=== PATIENT | male | born 1965 | race Caucasian/White ===

== ENCOUNTER 2017-02-13 20:53 | Inpatient (IN) | payer SELFPAY ==
[2017-02-13] MEDS ORDERED: NS 0.9% 1000 ML* 1,000 ML IV ONE (20:59)
[2017-02-13 21:16] LABS: Hematocrit 46 % (42-52); Hemoglobin 15.2 g/dl (14.0-18.0); Mean Corpuscular HGB Conc 33 g/dl (31-36); Mean Corpuscular Hemoglobin 31 pg (27-31); Mean Corpuscular Volume 93 fL (80-94); Mean Platelet Volume 7 um3 (7.4-10.4); Red Blood Count 4.95 10^6/ul (4.0-5.4); Red Cell Distribution Width 14 % (10.5-15); White Blood Count 10.6 10^3/ul (3.5-10.8)
[2017-02-13] MEDS ORDERED: LORazepam INJ* 2 MG/ML 1 ML VIAL IV PUSH ONE (21:18)
[2017-02-13] MEDS ORDERED: LORazepam INJ* 2 MG/ML 1 ML VIAL ONE (21:19)
[2017-02-13 21:28] LABS: ALT 16 U/L (7-52); AST 25 U/L (13-39); Albumin 4.1 g/dL (3.2-5.2); Alkaline Phosphatase 72 U/L (34-104); Anion Gap 8 mmol/L (2-11); BUN/Creatinine Ratio 8.2 (8-20); Blood Urea Nitrogen 8 mg/dL (6-24); CO2 Carbon Dioxide 28 mmol/L (22-32); Calcium 9.2 mg/dL (8.6-10.3); Chloride 103 mmol/L (101-111); EGFR African American 104.9 (>60); EGFR Non-African American 81.6 (>60); Globulin 2.9 g/dL (2-4); Glucose 113 mg/dL (70-100); Potassium 3.2 mmol/L (3.5-5.0); Sodium 139 mmol/L (133-145)
[2017-02-13 21:36] LABS: Urine Bilirubin Negative (Negative); Urine Glucose Negative (Negative); Urine Nitrite Negative (Negative)
[2017-02-13] MEDS ORDERED: Succinylcholine* 20 MG/ML 10 ML VIAL ONE (21:45)
[2017-02-13 21:49] LABS: Acetaminophen < 15 mcg/mL; Alcohol 129 mg/dL (<10); Salicylate < 2.50 mg/dL (<30)
[2017-02-13 21:51] LABS: Benzodiazepine Urine Screen None Detected (None Detect)
[2017-02-13] MEDS ORDERED: Propofol* 100 ML ONE (21:51)
[2017-02-13] MEDS ORDERED: Dextrose 50% Syringe 50 ML* 25 GM/50 ML SYRINGE IV PUSH PRN (21:59)
[2017-02-13] MEDS ORDERED: Acetaminophen ADULT LIQ* 650 MG/20.3 ML UDC PO PRN (21:59)
--- NOTE | 2017-02-13 22:10 | ED ---
Estrada Holliday Billy, scribed for Nate Hummel MD on 02/13/17 at 2115 . Substance Abuse/Use - HPI Summary HPI Summary: Patient is a 51 year-old male coming to [facility] for evaluation of Benadryl overdose tonight. History obtained from EMS. They report that the patient was having an argument with his girlfriend when he stated that he was going to kill himself. The patient took approximately 100-200 tabs of Benadryl 25mg. He also had 4-5 beers tonight. - History Of Current Complaint Chief Complaint: EDOverdose Stated Complaint: OVERDOSE Time Seen by Provider: 02/13/17 20:55 Hx Obtained From: EMS Onset/Duration of Drug/ETOH Abuse: Minutes Ingestion History: Type/Name Of Drug - Benadryl, EtOH Overdose Characteristics: Oral Timing Of Abuse: Binge Use Severity Initially: Moderate Severity Currently: Moderate Character: Stuporous Aggravating Factor(s): Nothing Alleviating Factor(s): Nothing - Allergies/Home Medications Allergies/Adverse Reactions: Allergies Allergy/AdvReac Type Severity Reaction Status Date / Time NSAIDs Allergy cardiac hx Verified 02/26/14 20:53 PMH/Surg Hx/FS Hx/Imm Hx Endocrine/Hematology History: Reports: Hx Diabetes Cardiovascular History: Reports: Hx Myocardial Infarction Respiratory History: Reports: Hx Sleep Apnea - PER PT HAS NOT BEEN DX Musculoskeletal History: Reports: Hx Arthritis - ANKLE Psychiatric History: Reports: Hx Substance Abuse - Immunization History Date of Tetanus Vaccine: PT STATES UNSURE Date of Influenza Vaccine: NONE Infectious Disease History: No Infectious Disease History: Denies: Traveled Outside the [place] in Last 30 Days - Family History Family History: Not obtained from the patient as he is stuporous and not coherently answering any questions. - Social History Alcohol Use: Rare Substance Use Type: Reports: None Hx Tobacco Use: Yes Review of Systems Negative: Fever Neurological: Other - OD All Other Systems Reviewed And Are Negative: No - Comments Additional Review of Systems Comments: Full ROS not obtained from the patient as he is stuporous and not coherently answering any questions. Physical Exam Triage Information Reviewed: Yes Vital Signs On Initial Exam: Initial Vitals Temp Pulse Resp BP Pulse Ox 98 F 82 24 154/87 95 02/13/17 20:58 02/13/17 20:58 02/13/17 20:58 02/13/17 20:58 02/13/17 20:58 Vital Signs Reviewed: Yes Completion Of Physical Exam Limited Due To: Extremis Appearance: Positive: Ill-Appearing Skin: Positive: Warm, Dry Head/Face: Positive: Normal Head/Face Inspection Eyes: Positive: NIESHA ENT: Positive: Hearing grossly normal Neck: Positive: Supple Respiratory/Lung Sounds: Positive: Clear to Auscultation, Breath Sounds Present Cardiovascular: Positive: RRR Abdomen Description: Positive: Nontender, Soft Musculoskeletal: Positive: Strength/ROM Intact Neurological: Positive: Other - moves all extremities, lethargic but arousable Psychiatric: Positive: Depressed - [place] Coma Scale Best Eye Response: 3 - To Speech Best Motor Response: 5 - Purposeful Movement Best Verbal Response: 3 - Inappropriate Words Procedures - Intubation Intubation Method: orotracheal Tube Size (cm): 8.0 Medications: Succinylcholine - etomidate Breath Sounds after Intubation: equal Intubation Complications: no complications Post Intubation Xray: Yes Diagnostics - Vital Signs Vital Signs Temp Pulse Resp BP Pulse Ox 02/13/17 20:58 98 F 82 24 154/87 95 - Laboratory Lab Results: Lab Results 02/13/17 02/13/17 02/13/17 Range/Units 21:00 21:00 21:00 WBC 10.6 (3.5-10.8) 10^3/ul RBC 4.95 (4.0-5.4) 10^6/ul Hgb 15.2 (14.0-18.0) g/dl Hct 46 (42-52) % MCV 93 (80-94) fL MCH 31 (27-31) pg MCHC 33 (31-36) g/dl RDW 14 (10.5-15) % Plt Count 286 (150-450) 10^3/ul MPV 7 L (7.4-10.4) um3 Neut % (Auto) 56.7 (38-83) % Lymph % (Auto) 33.6 (25-47) % Woodward % (Auto) 7.0 (1-9) % Eos % (Auto) 1.7 (0-6) % Baso % (Auto) 1.0 (0-2) % Absolute Neuts (auto) 6.0 (1.5-7.7) 10^3/ul Absolute Lymphs (auto) 3.6 (1.0-4.8) 10^3/ul Absolute Monos (auto) 0.7 (0-0.8) 10^3/ul Absolute Eos (auto) 0.2 (0-0.6) 10^3/ul Absolute Basos (auto) 0.1 (0-0.2) 10^3/ul Absolute Nucleated RBC 0.01 10^3/ul Nucleated RBC % 0 Sodium 139 (133-145) mmol/L Potassium 3.2 L (3.5-5.0) mmol/L Chloride 103 (101-111) mmol/L Carbon Dioxide 28 (22-32) mmol/L Anion Gap 8 (2-11) mmol/L BUN 8 (6-24) mg/dL Creatinine 0.97 (0.67-1.17) mg/dL Est GFR ( Amer) 104.9 (>60) Est GFR (Non-Af Amer) 81.6 (>60) BUN/Creatinine Ratio 8.2 (8-20) Glucose 113 H (70-100) mg/dL POC Glucose (mg/dL) (74-106) mg/dL Lactic Acid 2.0 (0.5-2.0) mmol/L Calcium 9.2 (8.6-10.3) mg/dL Total Bilirubin 0.30 (0.2-1.0) mg/dL AST 25 (13-39) U/L ALT 16 (7-52) U/L Alkaline Phosphatase 72 (34-104) U/L Total Protein 7.0 (6.4-8.9) g/dL Albumin 4.1 (3.2-5.2) g/dL Globulin 2.9 (2-4) g/dL Albumin/Globulin Ratio 1.4 (1-3) Urine Color Urine Appearance Urine pH (5-9) Ur Specific [place] (1.010-1.030) Urine Protein (Negative) Urine Ketones (Negative) Urine Blood (Negative) Urine Nitrate (Negative) Urine Bilirubin (Negative) Urine Urobilinogen (Negative) Ur Leukocyte Esterase (Negative) Urine Glucose (Negative) Salicylates < 2.50 (<30) mg/dL Urine Opiates Screen (None Detect) Acetaminophen < 15 mcg/mL Ur Barbiturates Screen (None Detect) Ur Phencyclidine Scrn (None Detect) Ur Amphetamines Screen (None Detect) U Benzodiazepines Scrn (None Detect) Urine Cocaine Screen (None Detect) U Cannabinoids Screen (None Detect) Serum Alcohol 129 H (<10) mg/dL 02/13/17 02/13/17 02/13/17 Range/Units 21:21 21:21 21:21 WBC (3.5-10.8) 10^3/ul RBC (4.0-5.4) 10^6/ul Hgb (14.0-18.0) g/dl Hct (42-52) % MCV (80-94) fL MCH (27-31) pg MCHC (31-36) g/dl RDW (10.5-15) % Plt Count (150-450) 10^3/ul MPV (7.4-10.4) um3 Neut % (Auto) (38-83) % Lymph % (Auto) (25-47) % Woodward % (Auto) (1-9) % Eos % (Auto) (0-6) % Baso % (Auto) (0-2) % Absolute Neuts (auto) (1.5-7.7) 10^3/ul Absolute Lymphs (auto) (1.0-4.8) 10^3/ul Absolute Monos (auto) (0-0.8) 10^3/ul Absolute Eos (auto) (0-0.6) 10^3/ul Absolute Basos (auto) (0-0.2) 10^3/ul Absolute Nucleated RBC 10^3/ul Nucleated RBC % Sodium (133-145) mmol/L Potassium (3.5-5.0) mmol/L Chloride (101-111) mmol/L Carbon Dioxide (22-32) mmol/L Anion Gap (2-11) mmol/L BUN (6-24) mg/dL Creatinine (0.67-1.17) mg/dL Est GFR ( Amer) (>60) Est GFR (Non-Af Amer) (>60) BUN/Creatinine Ratio (8-20) Glucose (70-100) mg/dL POC Glucose (mg/dL) 153 H (74-106) mg/dL Lactic Acid (0.5-2.0) mmol/L Calcium (8.6-10.3) mg/dL Total Bilirubin (0.2-1.0) mg/dL AST (13-39) U/L ALT (7-52) U/L Alkaline Phosphatase (34-104) U/L Total Protein (6.4-8.9) g/dL Albumin (3.2-5.2) g/dL Globulin (2-4) g/dL Albumin/Globulin Ratio (1-3) Urine Color Straw Urine Appearance Clear Urine pH 7.0 (5-9) Ur Specific [place] 1.004 L (1.010-1.030) Urine Protein Negative (Negative) Urine Ketones Negative (Negative) Urine Blood Negative (Negative) Urine Nitrate Negative (Negative) Urine Bilirubin Negative (Negative) Urine Urobilinogen Negative (Negative) Ur Leukocyte Esterase Negative (Negative) Urine Glucose Negative (Negative) Salicylates (<30) mg/dL Urine Opiates Screen None detected (None Detect) Acetaminophen mcg/mL Ur Barbiturates Screen None detected (None Detect) Ur Phencyclidine Scrn None detected (None Detect) Ur Amphetamines Screen None detected (None Detect) U Benzodiazepines Scrn None detected (None Detect) Urine Cocaine Screen Presumptive positive H (None Detect) U Cannabinoids Screen None detected (None Detect) Serum Alcohol (<10) mg/dL Result Diagrams: 02/13/17 21:00 02/13/17 21:00 Lab Statement: Any lab studies that have been ordered have been reviewed, and results considered in the medical decision making process. - Radiology CXR Radiology Interpretation Completed By: Radiologist - Adequately positioned endotracheal tube. - EKG 2121 EKG Interpretation: NSR 80 bpm Course/Dx - Diagnoses Provider Diagnoses: OD (overdose of drug) - Physician Notifications Instructed by Provider To: Admit As Inpatient - Critical Care Time Critical Care Time: 30-74 min Discharge - Discharge Plan Condition: Critical Disposition: ADMITTED TO [facility] documentation as recorded by the Estrada guzman Billy accurately reflects the service I personally performed and the decisions made by me, Nate Hummel MD.
[2017-02-13] MEDS ORDERED: fentaNYL* 50 MCG/ML 2 ML VIAL (100 MCG VIAL) IV SLOW PU ONE (22:16)
[2017-02-13] MEDS ORDERED: fentaNYL* 50 MCG/ML 2 ML VIAL (100 MCG VIAL) ONE (22:16)
[2017-02-13] MEDS: Propofol* 100 ML IV SCH (22:21)
[2017-02-13] MEDS ORDERED: LORazepam INJ* 2 MG/ML 1 ML VIAL IV PUSH PRN (22:26)
--- NOTE | 2017-02-13 22:28 | RAD ---
INDICATION: Intubation COMPARISON: Previous chest x-ray dated February 26, 2014 TECHNIQUE: Single AP portable view of the chest was obtained. FINDINGS: Image quality is compromised due to the relative inferiority of a portable chest x-ray. The endotracheal tube tip terminates below the level of the clavicular heads approximately 2.2 cm above the cristino. The heart and mediastinum exhibit normal size and contour. The lungs are grossly clear. There is no evidence of a large pleural effusion. Visualized bones are normal for the patient's age. IMPRESSION: Adequately positioned endotracheal tube.
[2017-02-13] MEDS ORDERED: fentaNYL PCA* 20 ML PCA SCH (23:00)
[2017-02-13] MEDS: NS 0.9% 1000 ML* 1,000 ML IV SCH (23:04)
[2017-02-13] MEDS ORDERED: Pantoprazole IV* 40 MG IV ONE (23:30)
[2017-02-13] MEDS: KCL 20 MEQ/100 ML IVPREMIX* 20 MEQ/100 ML BAG IV SCH (23:43)
[2017-02-13] MEDS: Pantoprazole IV* 80 MG in NS 0.9% 250 ML* 250 ML IVPB SCH (23:44)
--- NOTE | 2017-02-14 01:08 | HP ---
HISTORY AND PHYSICAL: DATE OF ADMISSION: 02/13/17 PRIMARY CARE PROVIDER: Unknown. ATTENDING PHYSICIAN WHILE IN THE HOSPITAL: Dr. Chalino Araya *(report dictated by Ethan Rider NP). CHIEF COMPLAINT: Overdose. HISTORY OF PRESENT ILLNESS: Mr. Skinner is a 51-year-old male patient that presented to the emergency department today apparently for an attempt of suicide by taking Benadryl and drinking 6 to 7 beers. Most of the H and P is unable to be obtained from the patient as he is nonresponsive. Essentially, the H and P is obtained from the nursing staff. According to the nursing staff , they got report from EMS. The patient today had told his girlfriend about half an hour to an hour prior to arrival to the ER that he had taken a handful, 2 bottles worth of 25 mg Benadryl 100 to 200 tablets. He also had had 6 or 7 beers. Apparently, they had gotten into an argument. He felt suicidal and wanted to take his life. He presents to the ER. He again was noted to be very lethargic, drowsy, unable to protect his airway, ultimately was intubated and the hospitalist service was asked to evaluate and consult. Poison Control was consulted. PAST MEDICAL HISTORY: From old chart include hypertension, hyperlipidemia, CAD , and a history of ID. PAST SURGICAL HISTORY: He has had a cardiac catheterization and one stent. MEDICATIONS: Last med list that I have in the computer: 1. Aspirin 81 mg daily. 2. Atenolol 25 mg daily. 3. Atorvastatin 20 mg daily. 4. Nitro 0.4 mg q.5 minutes p.r.n. chest pain x3. ALLERGIES TO MEDICATIONS: According to the available chart include NSAIDS. FAMILY HISTORY: Unable to be obtained. SOCIAL HISTORY: Unable to be obtained. REVIEW OF SYSTEMS: Unable to be obtained. PHYSICAL EXAMINATION GENERAL: At this time, Mr. Skinner is a 51-year-old male patient. He is sitting in the ER stretcher. He does not appear to be in any distress. He is again lethargic and is obtunded. VITAL SIGNS: Blood pressure 154/87, pulse 83, respirations 24, O2 sat 95%, temperature 98. HEENT: Head: Atraumatic. Eyes: Sclerae anicteric. Throat: Oral mucosa appears to be moist. No oropharyngeal erythema. NECK: Supple. LUNGS: Clear to auscultation bilaterally. No wheezes, rales, or rhonchi. HEART: Sounds S1, S2. Regular rate and rhythm.. ABDOMEN: Soft, flat, nontender. Bowel sounds present. EXTREMITIES: Pulses were 2+ throughout. He is moving all 4 extremities. NEUROLOGICAL: He will respond to sternal rub only. He will not open his eyes. He does not have an intact gag reflex at this point. His pupils were equal and reactive. They were not dilated. When he becomes restless, he grossly moves all 4 extremities. Corneal reflexes were intact and no facial droop. SKIN: Intact. DIAGNOSTIC STUDIES/LAB DATA: Labs today revealed WBC 10.6, RBC of 4.95, hemoglobin 15.2, hematocrit of 46, platelet count 286. Sodium 139, potassium 3.8, chloride of 103, bicarb 28, BUN 8, creatinine 0.97, glucose 113, lactic 2.0. AST 25, ALT 16, total bili is 0.3, albumin of 4.1. Urine obtained, negative. Toxicology, positive for alcohol and cocaine. He had EKG done in the ED, which revealed normal sinus rhythm, rate of 80, no ST elevations or T-wave inversions. His QTc was 420. This was reviewed to the previous EKG, it is similar. The QTC is similar to then as well. He had a chest x-ray. Official read is pending. This is status post intubation. It reveals an ET tube is just above the cristino. He had no blunting of the costophrenic angles. No infiltrates or effusions were noted. Old medical records reviewed. ASSESSMENT AND PLAN: Mr. Skinner is a 51-year-old male patient coming in to the ER today with suicidal ideation. In the ED, he appeared to be obtunded, cannot protect his airways, so he was intubated by Dr. Araya. We were asked to evaluate for admission. He will be admitted under inpatient status for: 1. Suicidal ideation with overdose. At this point, we did touch base with Poison Control. He was hypoglycemic in the field. His sugar was 42, it is 113 now. So, they recommended checking his blood sugars every hour in case he took something else that we are unaware of. In addition to this, they also recommended p.r.n. benzos, IV fluids, Duldey catheter, and airway protections. So, we intubated and he was placed on propofol drip. We will put him on assist control settings. I did touch base with Dr. Griggs. He was in agreement with this and will continue to follow, placed an OG tube up in the ICU and when he is extubated, he will need to be on a one to one safety watch and we will get a Psych consult when he is medically stable. At this point, to be safe, I am just getting a CT of the brain. 2. Coronary artery disease. Again, at this point, I do not have an accurate med list. So, we will try to obtain this in the morning and get him back on his medications that he was taking. 3. Hypertension. At this point, his blood pressure is in the 150s. If it becomes over the 180s, we can certainly give him p.r.n. medications for this. 4. Hyperlipidemia. Again, I will get an accurate list and start him on his meds. 5. DVT prophylaxis. I will put him on heparin subcu. 6. Code status. Full code. 7. Fluids, electrolytes, nutrition. Normal saline at 150 an hour and we will replace the potassium. TIME SPENT: Time spent on the admission 70 minutes, greater than half the time was spent [id number] with the patient in critical care time and discussed the plan of care with my attending, Dr. Araya; [place] [id number]/[facility] #: [id number] [place]
[2017-02-14] MEDS: Propofol* 100 ML IV SCH ×3 (01:09→07:51)
[2017-02-14] MEDS: KCL 20 MEQ/100 ML IVPREMIX* 20 MEQ/100 ML BAG IV SCH ×2 (02:08→03:47)
[2017-02-14 06:24] LABS: Hematocrit 40 % (42-52); Hemoglobin 13.5 g/dl (14.0-18.0); Mean Corpuscular HGB Conc 34 g/dl (31-36); Mean Corpuscular Hemoglobin 32 pg (27-31); Mean Corpuscular Volume 94 fL (80-94); Mean Platelet Volume 7 um3 (7.4-10.4); Red Blood Count 4.23 10^6/ul (4.0-5.4); Red Cell Distribution Width 14 % (10.5-15); White Blood Count 10.7 10^3/ul (3.5-10.8)
[2017-02-14 06:34] LABS: Calcium 8.2 mg/dL (8.6-10.3); EGFR African American 115.9 (>60); EGFR Non-African American 90.1 (>60)
[2017-02-14 06:40] LABS: Potassium 4.7 mmol/L (3.5-5.0)
[2017-02-14] MEDS: NS 0.9% 1000 ML* 1,000 ML IV SCH ×2 (06:43→12:28)
--- NOTE | 2017-02-14 07:40 | RAD ---
INDICATION: Altered mental status COMPARISON: None. TECHNIQUE: Contiguous axial sections of the brain were obtained from the skull base to the vertex without contrast. FINDINGS: The ventricles, cisterns and sulci are within normal limits. The bender-white matter differentiation is adequately maintained and there is no sulcal effacement. No significant focal abnormality or mass effect is present. There is no evidence for intracranial hemorrhage. No significant focal osseous abnormality is present. There is moderate mucosal thickening of the bilateral ethmoid air cells. Remaining visualized paranasal sinuses are clear. The mastoid air cells are adequately aerated. IMPRESSION: Normal CT of the brain.
--- NOTE | 2017-02-14 07:41 | RAD ---
INDICATION: Orogastric tube placement check COMPARISON: Chest x-ray dated February 13, 2017 TECHNIQUE: Single AP view of the chest was obtained. FINDINGS: There is a gastric tube with the tip terminating overlying the gastric fundus. The endotracheal tube is below the level of the clavicular heads and 5 cm above the cristino. The heart and mediastinum exhibit normal size and contour. The lungs are grossly clear. There is no evidence of a large pleural effusion. Visualized bones are normal for the patient's age. IMPRESSION: APPROPRIATELY POSITIONED GASTRIC TUBE AND ENDOTRACHEAL TUBE DESCRIBED ABOVE.
[2017-02-14] MEDS: Heparin VIAL(*) 5000 UNITS/ML VIAL (FIVE THOUSAND) SUBCUT SCH ×3 (07:51→21:43)
[2017-02-14] MEDS ORDERED: Famotidine SUSP* 40 MG/5 ML ORAL.SUSP G TUBE SCH (09:00)
[2017-02-14] MEDS: Pantoprazole IV* 80 MG in NS 0.9% 250 ML* 250 ML IVPB SCH (11:11)
--- NOTE | 2017-02-14 11:43 | PN ---
Progress Note - Progress Note Note: CRITICAL CARE MEDICINE Date: 02/14/17 Time: 1050 SUBJECTIVE: Patient seen and examined. Awakens off prop to follow commands. PHYSICAL EXAM: Vital Signs: Reviewed. Neurologic: nonfocal. DESIR. HEENT: pupils equal. Sclera anicteric. Trachea midline. Cardiovascular: S1 S2 Respiratory: coarse Abdomen: Soft, nt. No r/g/r. Extremities: Warm. LABS: Reviewed. IMAGING: Reviewed. MEDICATIONS: Reviewed. ASSESSMENT: 51 M Intentional OD benadryl and etoh consumption Acute hypoxic resp failure needing airway protection CAD PLAN: Neurologic: hold prop. Cardiovascular: perfusing. vol ok. keep ivf this am and then off later today. Respiratory: can liberate from vent. doing well with neuro status and great on cpap. Gastrointestinal: po diet post. can stop ppi gtt. no signs of gi bleed. Renal/Metabolic: lytes ok. Infectious Disease: no infective signs. Hematology: stable Endocrine: glu stable. dc accu checks. Musculoskeletal: oob later Psych/Social: will need pysch eval. suicidal precautions for now. Supportive and preventative care as ordered. SUP: ppi received VTE prophylaxis: heparin Dudley catheter given critical illness, monitoring needs for accurate assessment of LARA and KDIGO criteria for critically ill patients and to avoid potential harms of urinary retention, skin breakdown/ulcers. Restraints: dc Disposition: ICU; potential to floor later today. Code Status: Full Critical Care Time: 35min Pankaj Griggs DO
[2017-02-15] MEDS: Heparin VIAL(*) 5000 UNITS/ML VIAL (FIVE THOUSAND) SUBCUT SCH ×2 (05:35→14:07)
[2017-02-15 07:24] LABS: Hematocrit 41 % (42-52); Hemoglobin 13.9 g/dl (14.0-18.0); Mean Corpuscular HGB Conc 34 g/dl (31-36); Mean Corpuscular Hemoglobin 32 pg (27-31); Mean Corpuscular Volume 93 fL (80-94); Mean Platelet Volume 8 um3 (7.4-10.4); Red Blood Count 4.41 10^6/ul (4.0-5.4); Red Cell Distribution Width 14 % (10.5-15); White Blood Count 9.1 10^3/ul (3.5-10.8)
[2017-02-15 07:40] LABS: BUN/Creatinine Ratio 14.1 (8-20); Calcium 8.3 mg/dL (8.6-10.3); EGFR African American 111.5 (>60); EGFR Non-African American 86.7 (>60); Potassium 3.9 mmol/L (3.5-5.0)
[2017-02-15] MEDS ORDERED: Aspirin EC Low Dose* 81 MG TAB.EC PO SCH (09:00)
[2017-02-15] MEDS ORDERED: Atenolol TAB* 25 MG PO SCH (09:00)
[2017-02-15 15:50] VITALS: BP 148/76
--- NOTE | 2017-02-15 16:24 | PN ---
Subjective Date of Service: 02/15/17 Interval History: Pt is feeling well. He wants to go home. He denies pain. No SOB. Objective Active Medications: Acetaminophen (Tylenol Adult Liq*) 650 mg PO Q4H PRN PRN Reason: FEVER/PAIN Aspirin (Aspirin Ec Low Dose*) 81 mg PO DAILY [facility] Last Admin: 02/15/17 07:54 Dose: 81 mg Atenolol (Tenormin Tab*) 25 mg PO DAILY [facility] Last Admin: 02/15/17 07:54 Dose: 25 mg Dextrose (D50w Syringe 50 Ml*) 25 gm IV PUSH .FOR FS < 60 - SS PRN PRN Reason: FS < 60 Heparin Sodium (Porcine) (Heparin Vial(*)) 5,000 units SUBCUT Q8HR [facility] Last Admin: 02/15/17 14:07 Dose: Not Given Lorazepam (Ativan Inj*) 1 mg IV PUSH Q6H PRN PRN Reason: ANXIETY Vital Signs 02/14/17 02/14/17 02/14/17 19:01 19:42 20:00 Temperature 100.1 F 98.3 F Pulse Rate 75 70 Respiratory 12 20 20 Rate Blood Pressure 128/64 140/76 (mmHg) O2 Sat by Pulse 95 96 Oximetry 02/14/17 02/15/17 02/15/17 23:25 04:08 07:49 Temperature 98.3 F 98.3 F 98.0 F Pulse Rate 74 72 70 Respiratory 16 16 16 Rate Blood Pressure 149/63 135/74 126/72 (mmHg) O2 Sat by Pulse 98 97 99 Oximetry 02/15/17 02/15/17 02/15/17 08:37 11:27 15:31 Temperature 97.7 F 98.1 F Pulse Rate 57 62 Respiratory 16 16 18 Rate Blood Pressure 121/71 148/76 (mmHg) O2 Sat by Pulse 97 97 Oximetry Oxygen Devices in Use Now: None Appearance: Middle aged male sitting up in bed, NAD Eyes: No Scleral Icterus Ears/Nose/Mouth/Throat: Mucous Membranes Moist Respiratory: Symmetrical Chest Expansion and Respiratory Effort, Clear to Auscultation Cardiovascular: NL Sounds; No Murmurs; No JVD, RRR, No Edema Abdominal: NL Sounds; No Tenderness; No Distention Extremities: No Clubbing, Cyanosis Skin: No Rash or Ulcers, No Nodules or Sclerosis Neurological: Alert and Oriented x 3 Result Diagrams: 02/15/17 06:31 02/15/17 06:31 Additional Lab and Data: Lab Results 02/13/17 02/13/17 02/13/17 Range/Units 21:00 21:00 21:00 WBC 10.6 (3.5-10.8) 10^3/ul RBC 4.95 (4.0-5.4) 10^6/ul Hgb 15.2 (14.0-18.0) g/dl Hct 46 (42-52) % MCV 93 (80-94) fL MCH 31 (27-31) pg MCHC 33 (31-36) g/dl RDW 14 (10.5-15) % Plt Count 286 (150-450) 10^3/ul MPV 7 L (7.4-10.4) um3 Neut % (Auto) 56.7 (38-83) % Lymph % (Auto) 33.6 (25-47) % [place] % (Auto) 7.0 (1-9) % Eos % (Auto) 1.7 (0-6) % Baso % (Auto) 1.0 (0-2) % Absolute Neuts (auto) 6.0 (1.5-7.7) 10^3/ul Absolute Lymphs (auto) 3.6 (1.0-4.8) 10^3/ul Absolute Monos (auto) 0.7 (0-0.8) 10^3/ul Absolute Eos (auto) 0.2 (0-0.6) 10^3/ul Absolute Basos (auto) 0.1 (0-0.2) 10^3/ul Absolute Nucleated RBC 0.01 10^3/ul Nucleated RBC % 0 Sodium 139 (133-145) mmol/L Potassium 3.2 L (3.5-5.0) mmol/L Chloride 103 (101-111) mmol/L Carbon Dioxide 28 (22-32) mmol/L Anion Gap 8 (2-11) mmol/L BUN 8 (6-24) mg/dL Creatinine 0.97 (0.67-1.17) mg/dL Est GFR ( Amer) 104.9 (>60) Est GFR (Non-Af Amer) 81.6 (>60) BUN/Creatinine Ratio 8.2 (8-20) Glucose 113 H (70-100) mg/dL POC Glucose (mg/dL) (74-106) mg/dL Lactic Acid 2.0 (0.5-2.0) mmol/L Calcium 9.2 (8.6-10.3) mg/dL Total Bilirubin 0.30 (0.2-1.0) mg/dL AST 25 (13-39) U/L ALT 16 (7-52) U/L Alkaline Phosphatase 72 (34-104) U/L Total Protein 7.0 (6.4-8.9) g/dL Albumin 4.1 (3.2-5.2) g/dL Globulin 2.9 (2-4) g/dL Albumin/Globulin Ratio 1.4 (1-3) Urine Color Urine Appearance Urine pH (5-9) Ur Specific [place] (1.010-1.030) Urine Protein (Negative) Urine Ketones (Negative) Urine Blood (Negative) Urine Nitrate (Negative) Urine Bilirubin (Negative) Urine Urobilinogen (Negative) Ur Leukocyte Esterase (Negative) Urine Glucose (Negative) Salicylates < 2.50 (<30) mg/dL Urine Opiates Screen (None Detect) Acetaminophen < 15 mcg/mL Ur Barbiturates Screen (None Detect) Ur Phencyclidine Scrn (None Detect) Ur Amphetamines Screen (None Detect) U Benzodiazepines Scrn (None Detect) Urine Cocaine Screen (None Detect) U Cannabinoids Screen (None Detect) Serum Alcohol 129 H (<10) mg/dL 02/13/17 02/13/17 02/13/17 Range/Units 21:21 21:21 21:21 WBC (3.5-10.8) 10^3/ul RBC (4.0-5.4) 10^6/ul Hgb (14.0-18.0) g/dl Hct (42-52) % MCV (80-94) fL MCH (27-31) pg MCHC (31-36) g/dl RDW (10.5-15) % Plt Count (150-450) 10^3/ul MPV (7.4-10.4) um3 Neut % (Auto) (38-83) % Lymph % (Auto) (25-47) % [place] % (Auto) (1-9) % Eos % (Auto) (0-6) % Baso % (Auto) (0-2) % Absolute Neuts (auto) (1.5-7.7) 10^3/ul Absolute Lymphs (auto) (1.0-4.8) 10^3/ul Absolute Monos (auto) (0-0.8) 10^3/ul Absolute Eos (auto) (0-0.6) 10^3/ul Absolute Basos (auto) (0-0.2) 10^3/ul Absolute Nucleated RBC 10^3/ul Nucleated RBC % Sodium (133-145) mmol/L Potassium (3.5-5.0) mmol/L Chloride (101-111) mmol/L Carbon Dioxide (22-32) mmol/L Anion Gap (2-11) mmol/L BUN (6-24) mg/dL Creatinine (0.67-1.17) mg/dL Est GFR ( Amer) (>60) Est GFR (Non-Af Amer) (>60) BUN/Creatinine Ratio (8-20) Glucose (70-100) mg/dL POC Glucose (mg/dL) 153 H (74-106) mg/dL Lactic Acid (0.5-2.0) mmol/L Calcium (8.6-10.3) mg/dL Total Bilirubin (0.2-1.0) mg/dL AST (13-39) U/L ALT (7-52) U/L Alkaline Phosphatase (34-104) U/L Total Protein (6.4-8.9) g/dL Albumin (3.2-5.2) g/dL Globulin (2-4) g/dL Albumin/Globulin Ratio (1-3) Urine Color Straw Urine Appearance Clear Urine pH 7.0 (5-9) Ur Specific [place] 1.004 L (1.010-1.030) Urine Protein Negative (Negative) Urine Ketones Negative (Negative) Urine Blood Negative (Negative) Urine Nitrate Negative (Negative) Urine Bilirubin Negative (Negative) Urine Urobilinogen Negative (Negative) Ur Leukocyte Esterase Negative (Negative) Urine Glucose Negative (Negative) Salicylates (<30) mg/dL Urine Opiates Screen None detected (None Detect) Acetaminophen mcg/mL Ur Barbiturates Screen None detected (None Detect) Ur Phencyclidine Scrn None detected (None Detect) Ur Amphetamines Screen None detected (None Detect) U Benzodiazepines Scrn None detected (None Detect) Urine Cocaine Screen Presumptive positive H (None Detect) U Cannabinoids Screen None detected (None Detect) Serum Alcohol (<10) mg/dL Microbiology and Other Data: Microbiology 02/13/17 22:50 Gram Stain - Final Sputum Sputum Culture - Final Normal Elaine 02/13/17 23:00 Nasal Screen MRSA (PCR)(TALA) - Final Nasal Mrsa Negative 02/13/17 23:30 Gastric Occult Blood - Final Gastric Fluid Assess/Plan/Problems-Billing Mr Skinner is a 51 yo M who has HTN, CAD and HLD who presented to the ER after an overdose of benadryl. - Patient Problems (1) Overdose Current Visit: Yes Status: Acute Code(s): T50.901A - POISONING BY UNSP DRUG/ MEDS/BIOL SUBST, ACCIDENTAL, INIT SNOMED Code(s): 84089131 Comment: The patient required intubation for airway protection but was quickly extubated. He was seen by psychiatry who felt this was an impulsive decision and low risk for repeat attempt. It was recommended that he establish with [facility]. Will plan on d/c home today. (2) HTN (hypertension) Current Visit: Yes Status: Acute Code(s): I10 - ESSENTIAL (PRIMARY) HYPERTENSION SNOMED Code(s): 26273514 Comment: BP is under good control. Continue atenolol at home dose. (3) HLD (hyperlipidemia) Current Visit: Yes Status: Acute Code(s): E78.5 - HYPERLIPIDEMIA, UNSPECIFIED SNOMED Code(s): 89495768 Comment: Continue atorvastatin. (4) CAD (coronary artery disease) Current Visit: Yes Status: Acute Code(s): I25.10 - ATHSCL HEART DISEASE OF [place] CORONARY ARTERY W/O ANG PCTRS SNOMED Code(s): 78581341 Comment: No complaints of pain. Continue current home medication regimen. (5) DVT prophylaxis Current Visit: Yes Status: Acute Code(s): ICC0584 - SNOMED Code(s): 046052410 Comment: SQ heparin (6) Full code status Current Visit: Yes Status: Acute Code(s): Z78.9 - OTHER SPECIFIED HEALTH STATUS SNOMED Code(s): 279558734 Status and Disposition: d/c home
--- NOTE | 2017-02-15 17:33 | CONS ---
CONSULTATION REPORT: DATE OF CONSULT: 02/15/17 ATTENDING PHYSICIAN: Dr. Tess Jiménez. CONSULTING PHYSICIAN: Dr. Brendon Crespo with Psychiatry. REASON FOR CONSULT: Intentional overdose on diphenhydramine and alcohol. PSYCHIATRIC HISTORY: The patient is a 51-year-old white male with a history of alcoholism who was brought to the emergency department and admitted to Medicine after taking a handful of etka-ohk-ugjynnu Benadryl pills after drinking between 8 and 9 beers in what was determined parasuicidal gesture. The primary team has medically stabilized him and is now seeking psychiatric input in terms of the patient having an intentional overdose. When I meet with the patient, he denies any intention of harming himself. He denies depression or any history of mental illness. He does state that he got into a fight with his fiancee about money and this was after uncharacteristically drinking between 8 and 9 beers. He states that he has been mostly sober for the last 5 to 6 years after getting his third DWI 6 years ago. Since then, he states that his tolerance for alcohol has markedly diminished and that he became very much intoxicated and out of control after drinking. His fiancee is in his room and corroborates his story. She indicates that he took the handful of Benadryl right in front of her and she immediately called the paramedics to come take him to the hospital. 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 Since then, he states that he has not had a sense of purpose. 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 When I asked what he needs, he is declining substance abuse referral or mental health referrals in the community stating that all he needs to do is to get a job and get back to work. His fiancee is similarly minimizing towards this episode. She feels that he is not a danger to himself and states that it is very uncommon for him to drink these days and she had never seen him intoxicated like this. Both the patient and his fiancee are advocating for discharge. PAST PSYCHIATRIC HISTORY: The patient denies ever having any past suicide attempts. He has never been psychiatrically hospitalized. He states that on 2 occasions he sought therapy at the [facility], but states that this was unhelpful and is not interested in a referral to that facility at this time. He has no history of using psychiatric medications or any history of traumatic brain injury. SUBSTANCE ABUSE HISTORY: Significant for recent cocaine abuse which was in his urine and his serum alcohol level was 129. The patient states that these behaviors are extremely rare and he denies other illicit substances although he does smoke one-half pack of cigarettes per day. He denies having ever been to a rehab facility. PAST MEDICAL HISTORY: Significant for coronary artery disease, hypertension, hyperlipidemia, and a history of PR. The patient indicates that he has had 3 stents placed in his heart. CURRENT MEDICATIONS: Include: 1. Aspirin 81 mg daily. 2. Atenolol 25 mg daily. 3. Lipitor 20 mg daily. 4. Nitro 0.4 mg as needed for chest pain. ALLERGIES: He has no known drug allergies. FAMILY HISTORY: The patient denies any history of suicides in his family. SOCIAL HISTORY: The patient was born and raised in [place], [place], to an intact family. He is the youngest of 3 children and has an older brother and an older sister. 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 Currently, he has been with his fiancee for approximately 1 year. They share a dog together. The patient has no children. He has been twice and twice with his last divorce being in the year 1999. He has no history of service. The patient has a legal history of 3 DWIs. He has served at least 1 year in a [email or web address] and 2 years in the [facility]ci for these charges. MENTAL STATUS EXAM: The patient is a middle-aged white male without a shirt, lying supine in bed watching television. He is calm, cooperative, fairly easy to establish a rapport with and he answers questions readily. Speech has a normal rate, tone, and volume. Mood is slightly anxious with a full affect. Thought process is linear and goal directed. Thought content is significant for his desire to leave the hospital. He is denying suicidal or homicidal ideations. He denies auditory or visual hallucinations. Insight and judgment appear to be somewhat limited given his refusal for treatment referrals in the community. Cognitively, he is awake and alert with what would appear to be an average intellect. 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 Cocaine use disorder. Alcohol use disorder. Jermyn II: Deferred. ASSESSMENT: The patient is a 51-year-old white male with a history of alcoholism who was admitted to the medical service after an intentional overdose on a handful of Benadryl in the context of being intoxicated on alcohol. The patient steadfastly denies suicidal ideations and denies that this represented any attempt to end his life. Both he and his girlfriend are hoping that he can be discharged. In terms of the overdose, it was low both in lethality as well as intentionality and for these reasons, I think that he can be safely discharged back to the community. Unfortunately, the patient is declining any followup care either for mental health or substance abuse issues. RECOMMENDATIONS: Psychiatry recommends that the patient be discharged to home. The socially responsible investment adviser can give him the phone number for the [facility], but it is up to the patient to make any appointments necessary. The patient is advised to discontinue substances of abuse such as alcohol and cocaine. Thank you for allowing us to participate in the care of your patient. Psychiatry is signing off. [id number]/[facility] #: [id number] AMADOR
--- NOTE | 2017-02-16 05:27 | DS ---
DISCHARGE SUMMARY: DATE OF ADMISSION: 02/13/17 DATE OF DISCHARGE: 02/15/17 PRIMARY CARE PROVIDER: To be established at [facility]. PRINCIPAL DIAGNOSIS: Intentional Benadryl overdose in the setting of alcohol intoxication. SECONDARY DIAGNOSES: 1. Hypertension. 2. Hyperlipidemia. 3. Coronary artery disease. DISCHARGE MEDICATIONS: 1. Nitroglycerin 0.4 mg SL q.5 minutes p.r.n. chest pain. 2. Lipitor 20 mg p.o. daily. 3. Atenolol 25 mg p.o. daily. 4. Aspirin 81 mg p.o. daily. HOSPITAL COURSE: Mr. Skinner is a 51-year-old male, who presented to the emergency room on 02/13/17 with complaints of an overdose. The patient was unresponsive upon arrival to the emergency room. The patient was noted to be very lethargic, drowsy, and unable to protect his airway and ultimately intubated. Per report, the patient and his girlfriend had gone into an argument. Following that, he had 6 to 7 beers and took 2 bottles' worth of 25 mg Benadryl tablets. The patient again was intubated and admitted to the intensive care unit. The day following admission, the patient was able to be extubated. He was essentially transferred to the medical floor. He was under suicide precautions. On 02/15/17, the patient was seen in consultation by Dr. Crespo, who identified this patient, was denying suicidal ideations, and denies this represented any attempt to end his life. Dr. Crespo felt both he and his girlfriend were hoping that he could be discharged home. It was felt that the overdose was low in lethality as well as intentionality and for these reasons, it was felt that he can safely be discharged back to the community. The patient to Dr. Crespo was declining any followup care; however, Social Work did provide the patient with the phone number for [facility] to follow up. Additionally, the patient does not have a primary care provider at this point, but he is willing to reestablish with the clinic in [place], [place]. FOLLOWUP CONCERNS: The patient is being discharged home today, 02/15/17. ACTIVITY LEVEL: As tolerated. DIET: Low fat. CONDITION ON DISCHARGE: Stable. TIME SPENT: Thirty-five minutes was spent discharging this patient. [id number]/[facility] #: [id number] MTDD
== END 2017-02-15 16:45 | disposition home or self-care (01) | DRG 917 ==
LOC: ED 20:53 → ICU 21:52 → MED 02-14 20:00
PROVIDERS: ADMIT Hospitalist; ATTEND Hospitalist
PROC: 5A1935Z Respiratory Ventilation, Less than 24 Consecutive Hours (ICD-10-PCS; principal; 2017-02-13)
PROC: 0BH17EZ Insertion of Endotracheal Airway into Trachea, Via Natural or Artificial Opening (ICD-10-PCS; 2017-02-13)
DX: T45.0X2A Poisoning by antiallergic and antiemetic drugs, intentional self-harm, initial encounter (principal); J96.01 Acute respiratory failure with hypoxia; I10 Essential (primary) hypertension; E78.5 Hyperlipidemia, unspecified; I25.10 Atherosclerotic heart disease of native coronary artery without angina pectoris; F10.129 Alcohol abuse with intoxication, unspecified; Y90.9 Presence of alcohol in blood, level not specified; E11.9 Type 2 diabetes mellitus without complications; G47.33 Obstructive sleep apnea (adult) (pediatric); M19.079 Primary osteoarthritis, unspecified ankle and foot; E16.2 Hypoglycemia, unspecified; T51.0X2A Toxic effect of ethanol, intentional self-harm, initial encounter; Y90.6 Blood alcohol level of 120-199 mg/100 ml; F43.25 Adjustment disorder with mixed disturbance of emotions and conduct; F14.90 Cocaine use, unspecified, uncomplicated; Z78.1 Physical restraint status; Z95.5 Presence of coronary angioplasty implant and graft; Z88.8 Allergy status to other drugs, medicaments and biological substances; Z79.82 Long term (current) use of aspirin; I25.2 Old myocardial infarction
CPT/HCPCS: 36415; 70450; 71010; 80048; 80053; 80307; 80320; 80329; 81003; 82271; 82550; 83605; 85025; 85027; 85610; 87070; 87205; 87641; 93005; 94003; 94760; A9270-GY; G0480; J0330; J1644; J2060; J2704; J3010; J3480

== ENCOUNTER 2017-02-19 01:57 | Emergency (ER) | payer SELFPAY ==
[2017-02-19 03:10] LABS: Hematocrit 46 % (42-52); Hemoglobin 15.4 g/dl (14.0-18.0); Mean Corpuscular HGB Conc 34 g/dl (31-36); Mean Corpuscular Hemoglobin 31 pg (27-31); Mean Corpuscular Volume 92 fL (80-94); Mean Platelet Volume 7 um3 (7.4-10.4); Red Blood Count 4.97 10^6/ul (4.0-5.4); Red Cell Distribution Width 14 % (10.5-15); White Blood Count 11.8 10^3/ul (3.5-10.8)
[2017-02-19 03:23] LABS: ALT 52 U/L (7-52); AST 29 U/L (13-39); Albumin 4.3 g/dL (3.2-5.2); Alkaline Phosphatase 79 U/L (34-104); Anion Gap 12 mmol/L (2-11); BUN/Creatinine Ratio 11.7 (8-20); Blood Urea Nitrogen 13 mg/dL (6-24); CO2 Carbon Dioxide 22 mmol/L (22-32); Chloride 103 mmol/L (101-111); EGFR African American 89.8 (>60); EGFR Non-African American 69.8 (>60); Globulin 3.3 g/dL (2-4); Glucose 115 mg/dL (70-100); Potassium 3.5 mmol/L (3.5-5.0); Sodium 137 mmol/L (133-145); Total Protein 7.6 g/dL (6.4-8.9)
[2017-02-19 03:41] LABS: Acetaminophen < 15 mcg/mL; Alcohol 273 mg/dL (<10); Salicylate < 2.50 mg/dL (<30)
[2017-02-19] MEDS ORDERED: Haloperidol INJ IV/IM* 5 MG/ML AMP IM ONE (03:41)
[2017-02-19] MEDS ORDERED: LORazepam INJ* 2 MG/ML 1 ML VIAL IV PUSH ONE (03:41)
[2017-02-19] MEDS ORDERED: diPHENhydraMINE IV* 50 MG/ML 1 ml VIAL (BENADRYL) IM ONE (03:41)
[2017-02-19] MEDS ORDERED: diPHENhydraMINE IV* 50 MG in NS 0.9% 50 ML* 50 ML IVPB ONE (03:41)
[2017-02-19 03:51] LABS: TSH (Thyroid Stimulating Horm) 1.01 mcIU/mL (0.34-5.60)
--- NOTE | 2017-02-19 09:17 | RAD ---
INDICATION: Head injury altered mental status. COMPARISON: Comparison is made with a prior CT of the brain from February 14, 2017. TECHNIQUE: Contiguous axial sections of the brain were obtained from the skull base to the vertex without contrast. FINDINGS: The ventricles, cisterns and sulci are within normal limits. There are small areas of decreased attenuation present in the periventricular white matter on both sides suggestive of mild chronic small vessel ischemic changes. There is no change from the prior exam. No other focal abnormality or mass effect is seen. There is no evidence for hemorrhage. No fracture is seen. The visualized portion of the paranasal sinuses and mastoid air cells appear clear. IMPRESSION: 1. NO EVIDENCE FOR ACUTE INTRACRANIAL ABNORMALITY. 2. FINDINGS SUGGESTIVE OF MILD CHRONIC SMALL VESSEL ISCHEMIC CHANGES.
--- NOTE | 2017-02-19 14:02 | ED ---
Franck Holliday Rebecca, scribed for Tito Wynne MD on 02/19/17 at 1330 . Progress - Progress Note Progress Note: Pt was signed out from Dr. Martin. Pt came in [place] [facility] [place] as a 941. Upon mental health evaluation, it has been decided that pt will be D/C to home with a dx of acute alcoholic intoxication. pt is stable and is not a threat to himself. pt will be discharged to home. - Consult/PCP Time Called: 11:45 Course/Dx - Diagnoses Provider Diagnoses: Acute alcoholic intoxication The documentation as recorded by the scribeFranck Rebecca accurately reflects the service I personally performed and the decisions made by , Tito Wynne MD.
[2017-02-19 15:32] VITALS: BP 105/63
== END 2017-02-19 15:12 | disposition home or self-care (01) ==
LOC: ED 01:57
DX: F10.129 Alcohol abuse with intoxication, unspecified (principal)
CPT/HCPCS: 36415; 70450; 80053; 80320; 80329; 84443; 85025; 96374; 96375; 99285; G0480; J1200; J1630; J2060

== ENCOUNTER 2017-02-20 15:45 | Emergency (ER) | payer SELFPAY ==
[2017-02-20 16:01] VITALS: BP 146/88
[2017-02-20 16:42] LABS: Urine Bilirubin Negative (Negative); Urine Glucose Negative (Negative); Urine Nitrite Negative (Negative)
[2017-02-20 16:54] LABS: Benzodiazepine Urine Screen None Detected (None Detect)
[2017-02-20 17:04] LABS: Hematocrit 47 % (42-52); Hemoglobin 15.8 g/dl (14.0-18.0); Mean Corpuscular HGB Conc 33 g/dl (31-36); Mean Corpuscular Hemoglobin 31 pg (27-31); Mean Corpuscular Volume 93 fL (80-94); Mean Platelet Volume 7 um3 (7.4-10.4); Red Cell Distribution Width 14 % (10.5-15); White Blood Count 10.3 10^3/ul (3.5-10.8)
[2017-02-20 17:15] LABS: ALT 36 U/L (7-52); AST 31 U/L (13-39); Albumin 4.2 g/dL (3.2-5.2); Alkaline Phosphatase 81 U/L (34-104); Anion Gap 9 mmol/L (2-11); BUN/Creatinine Ratio 13.8 (8-20); Blood Urea Nitrogen 12 mg/dL (6-24); CO2 Carbon Dioxide 24 mmol/L (22-32); Calcium 9.4 mg/dL (8.6-10.3); Chloride 105 mmol/L (101-111); EGFR Non-African American 92.5 (>60); Globulin 3.3 g/dL (2-4); Glucose 107 mg/dL (70-100); Potassium 3.8 mmol/L (3.5-5.0); Sodium 138 mmol/L (133-145); Total Protein 7.5 g/dL (6.4-8.9)
[2017-02-20 17:56] LABS: Acetaminophen < 15 mcg/mL; Alcohol 143 mg/dL (<10); Salicylate < 2.50 mg/dL (<30)
[2017-02-20 18:07] LABS: TSH (Thyroid Stimulating Horm) 0.92 mcIU/mL (0.34-5.60)
--- NOTE | 2017-02-20 22:17 | ED ---
Steven Holliday,Jaden, scribed for Kayden Ohara MD on 02/20/17 at 1746 . Psychiatric Complaint - HPI Summary HPI Summary: This 51 y/o male presents to ED as [address] [employer]. He is currently denying any SI or HI, but noted with strong smell of EtOH. He is currently alert and oriented. Pt does have [facility], and is currently somewhat disagreeable with current plan of care involving MHE. discussed the processes and requirement of 941 involving EtOH clearance and MHE , and he is agreeable at this time. - History Of Current Complaint Chief Complaint: EDMentalHealth Time Seen by Provider: 02/20/17 16:17 Hx Obtained From: Patient, Medical Records, Other: Onset/Duration: Still Present Timing: Constant Severity Initially: Moderate Severity Currently: Moderate Aggravating Factor(s): Nothing Alleviating Factor(s): Nothing Associated Signs And Symptoms: Positive: Negative Related History: Positive For: Prior Psychiatric Issues - Allergies/Home Medications Allergies/Adverse Reactions: Allergies Allergy/AdvReac Type Severity Reaction Status Date / Time No Known Allergies Allergy Verified 02/20/17 16:01 PMH/Surg Hx/FS Hx/Imm Hx Endocrine/Hematology History: Reports: Hx Diabetes Cardiovascular History: Reports: Hx Hypertension, Hx Myocardial Infarction Respiratory History: Reports: Hx Sleep Apnea - PER PT HAS NOT BEEN DX Musculoskeletal History: Reports: Hx Arthritis - ANKLE Sensory History: Denies: Hx Contacts or Glasses - CHRIS, Hx Hearing Aid - CHRIS Opthamlomology History: Denies: Hx Contacts or Glasses - CHRIS Psychiatric History: Reports: Hx Substance Abuse Denies: Hx of Violent Episodes Against Others - Immunization History Date of Tetanus Vaccine: PT STATES UNSURE Date of Influenza Vaccine: NONE Infectious Disease History: No Infectious Disease History: Denies: Hx of Known/Suspected MRSA, Traveled Outside the [place] in Last 30 Days Comment Only: Hx Clostridium Difficile - CHRIS, Hx Hepatitis - CHRIS, Hx Human Immunodeficiency Virus (HIV) - CHRIS, Hx Shingles - CHRIS, Hx Tuberculosis - CHRIS - Family History Known Family History: Negative: Cardiac Disease - Social History Alcohol Use: Daily Hx Substance Use: No Substance Use Type: Reports: None Hx Tobacco Use: Yes Smoking Status (MU): Current Every Day Smoker Review of Systems Negative: Fever Positive: Other - EtOH on breath. Negative: Anxious, Depressed All Other Systems Reviewed And Are Negative: Yes Physical Exam Triage Information Reviewed: Yes Vital Signs On Initial Exam: Initial Vitals Temp Pulse Resp BP Pulse Ox 98.2 F 85 17 146/88 99 02/20/17 15:51 02/20/17 15:51 02/20/17 15:51 02/20/17 15:51 02/20/17 15:51 Vital Signs Reviewed: Yes Appearance: Positive: Well-Appearing, No Pain Distress Skin: Positive: Warm, Skin Color Reflects Adequate Perfusion, Dry Head/Face: Positive: Normal Head/Face Inspection Eyes: Positive: EOMI, NIESHA Neck: Positive: Supple, Nontender Respiratory/Lung Sounds: Positive: Clear to Auscultation, Breath Sounds Present Cardiovascular: Positive: RRR, Pulses are Symmetrical in both Upper and Lower Extremities Abdomen Description: Positive: Nontender, Soft Musculoskeletal: Positive: Strength/ROM Intact Neurological: Positive: Sensory/Motor Intact, Alert, Oriented to Person Place, Time Psychiatric: Positive: Other - EtOH on breath AVPU Assessment: Alert Diagnostics - Vital Signs Vital Signs Temp Pulse Resp BP Pulse Ox 02/20/17 15:51 98.2 F 85 17 146/88 99 - Laboratory Lab Results: Lab Results 02/20/17 02/20/17 02/20/17 Range/Units 16:30 16:30 16:49 WBC 10.3 (3.5-10.8) 10^3/ul RBC 5.10 (4.0-5.4) 10^6/ul Hgb 15.8 (14.0-18.0) g/dl Hct 47 (42-52) % MCV 93 (80-94) fL MCH 31 (27-31) pg MCHC 33 (31-36) g/dl RDW 14 (10.5-15) % Plt Count 318 (150-450) 10^3/ul MPV 7 L (7.4-10.4) um3 Neut % (Auto) 73.6 (38-83) % Lymph % (Auto) 18.4 L (25-47) % [place] % (Auto) 6.3 (1-9) % Eos % (Auto) 0.7 (0-6) % Baso % (Auto) 1.0 (0-2) % Absolute Neuts (auto) 7.6 (1.5-7.7) 10^3/ul Absolute Lymphs (auto) 1.9 (1.0-4.8) 10^3/ul Absolute Monos (auto) 0.7 (0-0.8) 10^3/ul Absolute Eos (auto) 0.1 (0-0.6) 10^3/ul Absolute Basos (auto) 0.1 (0-0.2) 10^3/ul Absolute Nucleated RBC 0 10^3/ul Nucleated RBC % 0 Sodium (133-145) mmol/L Potassium (3.5-5.0) mmol/L Chloride (101-111) mmol/L Carbon Dioxide (22-32) mmol/L Anion Gap (2-11) mmol/L BUN (6-24) mg/dL Creatinine (0.67-1.17) mg/dL Est GFR ( Amer) (>60) Est GFR (Non-Af Amer) (>60) BUN/Creatinine Ratio (8-20) Glucose (70-100) mg/dL Calcium (8.6-10.3) mg/dL Total Bilirubin (0.2-1.0) mg/dL AST (13-39) U/L ALT (7-52) U/L Alkaline Phosphatase (34-104) U/L Total Protein (6.4-8.9) g/dL Albumin (3.2-5.2) g/dL Globulin (2-4) g/dL Albumin/Globulin Ratio (1-3) TSH (0.34-5.60) mcIU/mL Urine Color Straw Urine Appearance Clear Urine pH 6.0 (5-9) Ur Specific [place] 1.005 L (1.010-1.030) Urine Protein Negative (Negative) Urine Ketones Negative (Negative) Urine Blood Negative (Negative) Urine Nitrate Negative (Negative) Urine Bilirubin Negative (Negative) Urine Urobilinogen Negative (Negative) Ur Leukocyte Esterase Negative (Negative) Urine Glucose Negative (Negative) Salicylates (<30) mg/dL Urine Opiates Screen None detected (None Detect) Acetaminophen mcg/mL Ur Barbiturates Screen None detected (None Detect) Ur Phencyclidine Scrn None detected (None Detect) Ur Amphetamines Screen None detected (None Detect) U Benzodiazepines Scrn None detected (None Detect) Urine Cocaine Screen Presumptive positive H (None Detect) U Cannabinoids Screen None detected (None Detect) Serum Alcohol (<10) mg/dL 02/20/17 Range/Units 16:49 WBC (3.5-10.8) 10^3/ul RBC (4.0-5.4) 10^6/ul Hgb (14.0-18.0) g/dl Hct (42-52) % MCV (80-94) fL MCH (27-31) pg MCHC (31-36) g/dl RDW (10.5-15) % Plt Count (150-450) 10^3/ul MPV (7.4-10.4) um3 Neut % (Auto) (38-83) % Lymph % (Auto) (25-47) % [place] % (Auto) (1-9) % Eos % (Auto) (0-6) % Baso % (Auto) (0-2) % Absolute Neuts (auto) (1.5-7.7) 10^3/ul Absolute Lymphs (auto) (1.0-4.8) 10^3/ul Absolute Monos (auto) (0-0.8) 10^3/ul Absolute Eos (auto) (0-0.6) 10^3/ul Absolute Basos (auto) (0-0.2) 10^3/ul Absolute Nucleated RBC 10^3/ul Nucleated RBC % Sodium 138 (133-145) mmol/L Potassium 3.8 (3.5-5.0) mmol/L Chloride 105 (101-111) mmol/L Carbon Dioxide 24 (22-32) mmol/L Anion Gap 9 (2-11) mmol/L BUN 12 (6-24) mg/dL Creatinine 0.87 (0.67-1.17) mg/dL Est GFR ( Amer) 119.0 (>60) Est GFR (Non-Af Amer) 92.5 (>60) BUN/Creatinine Ratio 13.8 (8-20) Glucose 107 H (70-100) mg/dL Calcium 9.4 (8.6-10.3) mg/dL Total Bilirubin 0.60 (0.2-1.0) mg/dL AST 31 (13-39) U/L ALT 36 (7-52) U/L Alkaline Phosphatase 81 (34-104) U/L Total Protein 7.5 (6.4-8.9) g/dL Albumin 4.2 (3.2-5.2) g/dL Globulin 3.3 (2-4) g/dL Albumin/Globulin Ratio 1.3 (1-3) TSH 0.92 (0.34-5.60) mcIU/mL Urine Color Urine Appearance Urine pH (5-9) Ur Specific [place] (1.010-1.030) Urine Protein (Negative) Urine Ketones (Negative) Urine Blood (Negative) Urine Nitrate (Negative) Urine Bilirubin (Negative) Urine Urobilinogen (Negative) Ur Leukocyte Esterase (Negative) Urine Glucose (Negative) Salicylates < 2.50 (<30) mg/dL Urine Opiates Screen (None Detect) Acetaminophen < 15 mcg/mL Ur Barbiturates Screen (None Detect) Ur Phencyclidine Scrn (None Detect) Ur Amphetamines Screen (None Detect) U Benzodiazepines Scrn (None Detect) Urine Cocaine Screen (None Detect) U Cannabinoids Screen (None Detect) Serum Alcohol 143 H (<10) mg/dL Result Diagrams: 02/20/17 16:49 02/20/17 16:49 Lab Statement: Any lab studies that have been ordered have been reviewed, and results considered in the medical decision making process. Course/Dx - Course Course Of Treatment: NO CRITICAL CARE TIME Assessment/Plan: DISCHARGE HOME STABLE AFTER MHE - Differential Dx/Clinical Impression Provider Diagnosis: Mental health problem, Acute alcohol intoxication Discharge - Discharge Plan Condition: Stable Disposition: HOME Referrals: Jeison Morrison MD [Primary Care Provider] - The documentation as recorded by the Steven guzman Soohyun accurately reflects the service I personally performed and the decisions made by , Kayden Ohara MD.
== END 2017-02-20 22:17 | disposition home or self-care (01) ==
LOC: ED 15:45
DX: F10.129 Alcohol abuse with intoxication, unspecified (principal); Y90.6 Blood alcohol level of 120-199 mg/100 ml; Z00.8 Encounter for other general examination
CPT/HCPCS: 36415; 80053; 80307; 80320; 80329; 81003; 84443; 85025; 99283; G0480

== ENCOUNTER 2017-05-11 06:52 | Observation (INO) | payer SELFPAY ==
[2017-05-11 07:37] LABS: Urine Bilirubin Negative (Negative); Urine Glucose Negative (Negative); Urine Nitrite Negative (Negative)
[2017-05-11 07:44] LABS: Hematocrit 48 % (42-52); Hemoglobin 15.9 g/dl (14.0-18.0); Mean Corpuscular HGB Conc 33 g/dl (31-36); Mean Corpuscular Hemoglobin 32 pg (27-31); Mean Corpuscular Volume 95 fL (80-94); Mean Platelet Volume 7 um3 (7.4-10.4); Red Blood Count 5.05 10^6/ul (4.0-5.4); Red Cell Distribution Width 14 % (10.5-15)
[2017-05-11 07:59] LABS: ALT 12 U/L (7-52); AST 14 U/L (13-39); Albumin 4.4 g/dL (3.2-5.2); Alkaline Phosphatase 78 U/L (34-104); Anion Gap 10 mmol/L (2-11); BUN/Creatinine Ratio 11.5 (8-20); Blood Urea Nitrogen 10 mg/dL (6-24); CO2 Carbon Dioxide 23 mmol/L (22-32); Calcium 9.4 mg/dL (8.6-10.3); Chloride 103 mmol/L (101-111); EGFR Non-African American 92.5 (>60); Glucose 63 mg/dL (70-100); Potassium 3.4 mmol/L (3.5-5.0); Sodium 136 mmol/L (133-145); Total Protein 7.4 g/dL (6.4-8.9)
[2017-05-11 07:59] LABS: Benzodiazepine Urine Screen None Detected (None Detect)
[2017-05-11 08:36] LABS: Acetaminophen < 15 mcg/mL; Alcohol 75 mg/dL (<10); Salicylate < 2.50 mg/dL (<30)
[2017-05-11 08:43] LABS: Digoxin 3.6 ng/ml (0.8-2.0)
[2017-05-11 08:45] LABS: TSH (Thyroid Stimulating Horm) 1.16 mcIU/mL (0.34-5.60)
[2017-05-11] MEDS ORDERED: Dextrose 50% Syringe 50 ML* 25 GM/50 ML SYRINGE IV PUSH ONE (08:55)
--- NOTE | 2017-05-11 09:48 | ED ---
Maikol Holliday [place], scribed for Tito Wynne MD on 05/11/17 at 0735 . Substance Abuse/Use - HPI Summary HPI Summary: Patient is a 51 y/o M who presents to the ED per law enforcement. Pts called the police as she was concerned that pt had taken some of his fathers old medication (including Digoxin) around 0300. He denies taking the medication , but reports taking 2 Ibuprofen at 0200 for pain in his wrist. Pt also denies CP, SOB, or SI. Pt reports PMHx of CAD with 2 stent placements, but denies DM. Pt states that he does not hear voices nor have trouble sleeping. - History Of Current Complaint Chief Complaint: EDMentalHealth Stated Complaint: POSS OVERDOSE Time Seen by Provider: 05/11/17 07:30 Hx Obtained From: Patient Onset/Duration of Drug/ETOH Abuse: Hours Overdose Characteristics: Oral Severity Initially: Moderate Severity Currently: Moderate Character: Anxious Aggravating Factor(s): Nothing Alleviating Factor(s): Nothing Associated Signs And Symptoms: Negative - Allergies/Home Medications Allergies/Adverse Reactions: Allergies Allergy/AdvReac Type Severity Reaction Status Date / Time No Known Allergies Allergy Verified 02/20/17 16:01 PMH/Surg Hx/FS Hx/Imm Hx Endocrine/Hematology History: Denies: Hx Diabetes Cardiovascular History: Reports: Hx Hypertension, Hx Myocardial Infarction Respiratory History: Reports: Hx Sleep Apnea - PER PT HAS NOT BEEN DX Musculoskeletal History: Reports: Hx Arthritis - ANKLE Sensory History: Denies: Hx Contacts or Glasses - CHRIS, Hx Hearing Aid - CHRIS Opthamlomology History: Denies: Hx Contacts or Glasses - CHRIS Psychiatric History: Reports: Hx Substance Abuse Denies: Hx Eating Disorder, Hx of Violent Episodes Against Others - Immunization History Date of Tetanus Vaccine: PT STATES UNSURE Date of Influenza Vaccine: NONE Infectious Disease History: Denies: Hx of Known/Suspected MRSA, Traveled Outside the [place] in Last 30 Days Comment Only: Hx Clostridium Difficile - CHRIS, Hx Hepatitis - CHRIS, Hx Human Immunodeficiency Virus (HIV) - CHRIS, Hx Shingles - CHRIS, Hx Tuberculosis - CHRIS - Family History Known Family History: Negative: Cardiac Disease - Social History Alcohol Use: Daily Hx Substance Use: No Substance Use Type: Reports: None Hx Tobacco Use: Yes Smoking Status (MU): Current Every Day Smoker Review of Systems Negative: Chest Pain Negative: Shortness Of Breath Psychological: Other - No SI. Does not hear voices and no trouble sleeping. Positive: Other - Substance abuse. All Other Systems Reviewed And Are Negative: Yes Physical Exam - Summary Physical Exam Summary: The patient is well-nourished in no acute distress and in no acute pain. The skin is warm and dry and skin color reflects adequate perfusion. HEENT: The head is normocephalic and atraumatic. The pupils are equal and reactive. The conjunctivae are clear and without drainage. Nares are patent and without drainage. Mouth reveals moist mucous membranes and the throat is without erythema and exudate. The external ears are intact. The ear canals are patent and without drainage. The tympanic membranes are intact. Neck is supple with full range of motion and non-tender. There are no carotid bruits. There is no neck vein distension. Respiratory: Chest is non-tender. Lungs are clear to auscultation and breath sounds are symmetrical and equal. Cardiovascular: Hear is regular rate and rhythm. Not tachycardia or bradycardia. There is no murmur or rub auscultated. There is no peripheral edema and pulses are symmetrical and equal. Mild cyanosis on nail beads. Abdomen: The abdomen is soft and non-tender. There are normal bowel sounds heard in all four quadrants and there is no organomegaly palpated. Musculoskeletal: There is no back pain noted. Extremities are non-tender with full range of motion. There is good capillary refill. There is no peripheral edema or calf tenderness elicited. Neurological: Patient is alert and oriented to person, place and time. The patient has symmetrical motor strength in all four extremities. Cranial nerves are grossly intact. Deep tendon reflexes are symmetrical and equal in all four extremities. Psychiatric: He does not appear depressed, but appears anxious. Triage Information Reviewed: Yes Vital Signs On Initial Exam: Initial Vitals Temp Pulse Resp BP Pulse Ox 98 F 78 18 156/100 97 05/11/17 06:55 05/11/17 06:55 05/11/17 06:55 05/11/17 06:55 05/11/17 06:55 Vital Signs Reviewed: Yes Diagnostics - Vital Signs Vital Signs Temp Pulse Resp BP Pulse Ox 05/11/17 06:55 98 F 78 18 156/100 97 - Laboratory Lab Results: Lab Results 06/21/17 06/21/17 06/21/17 Range/Units 07:24 07:24 07:36 WBC (3.5-10.8) 10^3/ul RBC (4.0-5.4) 10^6/ul Hgb (14.0-18.0) g/dl Hct (42-52) % MCV (80-94) fL MCH (27-31) pg MCHC (31-36) g/dl RDW (10.5-15) % Plt Count (150-450) 10^3/ul MPV (7.4-10.4) um3 Neut % (Auto) (38-83) % Lymph % (Auto) (25-47) % [place] % (Auto) (1-9) % Eos % (Auto) (0-6) % Baso % (Auto) (0-2) % Absolute Neuts (auto) (1.5-7.7) 10^3/ul Absolute Lymphs (auto) (1.0-4.8) 10^3/ul Absolute Monos (auto) (0-0.8) 10^3/ul Absolute Eos (auto) (0-0.6) 10^3/ul Absolute Basos (auto) (0-0.2) 10^3/ul Absolute Nucleated RBC 10^3/ul Nucleated RBC % Sodium 136 (133-145) mmol/L Potassium 3.4 L (3.5-5.0) mmol/L Chloride 103 (101-111) mmol/L Carbon Dioxide 23 (22-32) mmol/L Anion Gap 10 (2-11) mmol/L BUN 10 (6-24) mg/dL Creatinine 0.87 (0.67-1.17) mg/dL Est GFR ( Amer) 119.0 (>60) Est GFR (Non-Af Amer) 92.5 (>60) BUN/Creatinine Ratio 11.5 (8-20) Glucose 63 L (70-100) mg/dL POC Glucose (mg/dL) (74-106) mg/dL Lactic Acid (0.5-2.0) mmol/L Calcium 9.4 (8.6-10.3) mg/dL Total Bilirubin 0.50 (0.2-1.0) mg/dL AST 14 (13-39) U/L ALT 12 (7-52) U/L Alkaline Phosphatase 78 (34-104) U/L Total Protein 7.4 (6.4-8.9) g/dL Albumin 4.4 (3.2-5.2) g/dL Globulin 3.0 (2-4) g/dL Albumin/Globulin Ratio 1.5 (1-3) TSH 1.16 (0.34-5.60) mcIU/mL Urine Color Straw Urine Appearance Clear Urine pH 6.0 (5-9) Ur Specific [place] 1.002 L (1.010-1.030) Urine Protein Negative (Negative) Urine Ketones Negative (Negative) Urine Blood Negative (Negative) Urine Nitrate Negative (Negative) Urine Bilirubin Negative (Negative) Urine Urobilinogen Negative (Negative) Ur Leukocyte Esterase Negative (Negative) Urine Glucose Negative (Negative) Digoxin 3.6 H* (0.8-2.0) ng/ml Salicylates < 2.50 (<30) mg/dL Urine Opiates Screen None detected (None Detect) Acetaminophen < 15 mcg/mL Ur Barbiturates Screen None detected (None Detect) Ur Phencyclidine Scrn None detected (None Detect) Ur Amphetamines Screen None detected (None Detect) U Benzodiazepines Scrn None detected (None Detect) Urine Cocaine Screen Presumptive positive H (None Detect) U Cannabinoids Screen Presumptive positive H (None Detect) Serum Alcohol 75 H (<10) mg/dL 05/11/17 05/11/17 05/11/17 Range/Units 07:36 07:36 08:00 WBC 10.0 (3.5-10.8) 10^3/ul RBC 5.05 (4.0-5.4) 10^6/ul Hgb 15.9 (14.0-18.0) g/dl Hct 48 (42-52) % MCV 95 H (80-94) fL MCH 32 H (27-31) pg MCHC 33 (31-36) g/dl RDW 14 (10.5-15) % Plt Count 270 (150-450) 10^3/ul MPV 7 L (7.4-10.4) um3 Neut % (Auto) 71.8 (38-83) % Lymph % (Auto) 19.8 L (25-47) % [place] % (Auto) 6.3 (1-9) % Eos % (Auto) 1.0 (0-6) % Baso % (Auto) 1.1 (0-2) % Absolute Neuts (auto) 7.1 (1.5-7.7) 10^3/ul Absolute Lymphs (auto) 2.0 (1.0-4.8) 10^3/ul Absolute Monos (auto) 0.6 (0-0.8) 10^3/ul Absolute Eos (auto) 0.1 (0-0.6) 10^3/ul Absolute Basos (auto) 0.1 (0-0.2) 10^3/ul Absolute Nucleated RBC 0.01 10^3/ul Nucleated RBC % 0.1 Sodium (133-145) mmol/L Potassium (3.5-5.0) mmol/L Chloride (101-111) mmol/L Carbon Dioxide (22-32) mmol/L Anion Gap (2-11) mmol/L BUN (6-24) mg/dL Creatinine (0.67-1.17) mg/dL Est GFR ( Amer) (>60) Est GFR (Non-Af Amer) (>60) BUN/Creatinine Ratio (8-20) Glucose (70-100) mg/dL POC Glucose (mg/dL) 61 L (74-106) mg/dL Lactic Acid 1.4 (0.5-2.0) mmol/L Calcium (8.6-10.3) mg/dL Total Bilirubin (0.2-1.0) mg/dL AST (13-39) U/L ALT (7-52) U/L Alkaline Phosphatase (34-104) U/L Total Protein (6.4-8.9) g/dL Albumin (3.2-5.2) g/dL Globulin (2-4) g/dL Albumin/Globulin Ratio (1-3) TSH (0.34-5.60) mcIU/mL Urine Color Urine Appearance Urine pH (5-9) Ur Specific [place] (1.010-1.030) Urine Protein (Negative) Urine Ketones (Negative) Urine Blood (Negative) Urine Nitrate (Negative) Urine Bilirubin (Negative) Urine Urobilinogen (Negative) Ur Leukocyte Esterase (Negative) Urine Glucose (Negative) Digoxin (0.8-2.0) ng/ml Salicylates (<30) mg/dL Urine Opiates Screen (None Detect) Acetaminophen mcg/mL Ur Barbiturates Screen (None Detect) Ur Phencyclidine Scrn (None Detect) Ur Amphetamines Screen (None Detect) U Benzodiazepines Scrn (None Detect) Urine Cocaine Screen (None Detect) U Cannabinoids Screen (None Detect) Serum Alcohol (<10) mg/dL Result Diagrams: 05/11/17 07:36 05/11/17 07:36 Lab Statement: Any lab studies that have been ordered have been reviewed, and results considered in the medical decision making process. - EKG 0742 EKG Interpretation: NSR @ 64 bpm. Not bradycardic. Nml Q t wave. PRWP. No STEMI. Course/Dx - Course Course Of Treatment: 51 y/o M presents with possible substance abuse of Digoxin per . He denies CP, SOB, SI, hearing voices, or trouble sleeping. Pt will be observed and kept on monitor before mental health evaluation. EKG taken. Pt received Dextrose in ED course. Discussed case with Dr. Roger. Pt will be admitted. - Diagnoses Differential Diagnosis/HQI/PQRI: Positive: Depression, Other - suicide attempt Provider Diagnoses: Digoxin toxicity, Hypoglycemia, Overdose - Physician Notifications Discussed Care Of Patient With: Anjana Roger Time Discussed With Above Provider: 09:10 Instructed by Provider To: Admit As Inpatient - Critical Care Time Critical Care Time: 30-74 min - 30 minutes Discharge - Discharge Plan Condition: Stable Disposition: ADMITTED TO [facility] The documentation as recorded by the Maikol guzman [place] accurately reflects the service I personally performed and the decisions made by , Tito Wynne MD.
[2017-05-11] MEDS ORDERED: D5W 1/2 NS 1000 ML BAG* 1,000 ML IV SCH (10:00)
[2017-05-11] MEDS ORDERED: D5W 1/2 NS 40 Meq KCL 1000 ML* 1,000 ML IV SCH (10:00)
[2017-05-11 12:25] LABS: BUN/Creatinine Ratio 14.1 (8-20); EGFR Non-African American 104.9 (>60); Potassium 3.7 mmol/L (3.5-5.0)
[2017-05-11 13:10] LABS: Calcium 9.6 mg/dL (8.6-10.3)
--- NOTE | 2017-05-11 13:37 | HP ---
HISTORY AND PHYSICAL: DATE OF ADMISSION: 05/11/17 PRIMARY CARE PROVIDER: None. ATTENDING PHYSICIAN: Dr. Vuong * (DICTATED BY MITRA POWELL, RASHEL) CHIEF COMPLAINT: Overdose. HISTORY OF PRESENT ILLNESS: Mr. Skinner is a 51-year-old male patient with history of hypertension, hyperlipidemia. He has a history of CAD and a history of IL with stent. He recently was here in January with similar complaints where he apparently took two bottles of Benadryl. In addition to this, also took 5 to 6 beers. He was intubated at that time and was seen by Psychiatry. It was felt not to be suicidal and was discharged home. I refer you to the hospitalization for further details. He comes in back again today. Apparently, his called police because he had reportedly stated around 5 o'clock he took 1 to 3 possible prescription medication and fell asleep on the floor. reported this, but initially asking the patient, he says he did not take anything. The was obviously concerned and brought him into the hospital for evaluation. She was obviously concerned and called 911. He was brought into the hospital. It was noted that his digoxin level was 3.6. He was positive for cocaine, cannabis, and alcohol. The patient states that he thought he took ibuprofen this morning when he woke up but he did not. He obviously took some other medications. He thinks he took digoxin, possibly a diabetic medication that his father normally takes. He states that he is not having any nausea. Denies having visual disturbance. Denies having any floaters. Denies feeling lethargic. Denies feeling tired with exception that he has not gotten much sleep in the last several days. He feels little fatigued but he says no more than he normally feels. He came in, because of the elevated digoxin level and the fact that his sugar when he came in was 60, we were asked to evaluate for admission. I did touch base with the patient's who felt that the patient was not suicidal and felt that he took his medications in error. PAST MEDICAL HISTORY: Significant for: 1. Hypertension. 2. Hyperlipidemia. 3. CAD. 4. IL. PAST SURGICAL HISTORY: He has had cardiac cath. HOME MEDICATIONS: According to the last H and P include: 1. Ibuprofen 200 mg every 8 hours as needed. 2. Lipitor 20 mg at bedtime. 3. Tenormin 25 mg p.o. daily. 4. Aspirin 81 mg daily Although he says he was not able to afford the Lipitor. ALLERGIES TO MEDICATION: No known drug allergies. FAMILY HISTORY: His mother has dementia. Father has a history of heart disease and diabetes. SOCIAL HISTORY: He is a pack a day smoker for about 20 years. He says he drinks alcohol occasionally. The last time he drank was yesterday and he had about 6 beers. His is his healthcare proxy. REVIEW OF SYSTEMS: There is no documented fever. He denied having any significant weight change. There was no double vision. He denies having any ear discharge. There was no rhinorrhea, no sore throat, no thyroid enlargement. Denies having any chest pain. There was no orthopnea. There was no nocturnal dyspnea. There was no abdominal pain. There was no nausea, no vomiting. No dysuria, no frequency. There was no seizure. There was no loss of consciousness. No pruritus, no skin ulceration. Review of 14 systems completed, all others negative. PHYSICAL EXAMINATION GENERAL: At this time, Mr. Skinner is a 51-year-old male patient. He is sitting in the ER stretcher. He does not appear to be in any acute distress. VITAL SIGNS: Blood pressure of 148/86, pulse of 70, respirations 18, O2 sat 96% , temperature 98.2. HEENT: Head is atraumatic. Eyes: EOMs are intact. Sclerae anicteric. Throat : Oral mucosa appears to be moist. No oropharyngeal erythema. NECK: Supple. LUNGS: Clear to auscultation bilaterally. No wheezes, rales, or rhonchi. HEART: Sounds S1, S2. Regular rate and rhythm. No murmurs, rubs, or gallops. ABDOMEN: Soft, flat, nontender. Bowel sounds are hypoactive. EXTREMITIES: Pulses were 2+ throughout. He is able to move all 4 extremities with 5/5 strength. NEUROLOGIC: The patient is awake, he is alert. He is oriented x3. Tongue midline. Ocean Fishing Guide were equal. No gross focal deficits. SKIN: Intact. DIAGNOSTIC STUDIES/LAB DATA: Labs today revealed WBC 10, RBC of 5.05, hemoglobin 15.9, hematocrit of 48, platelet count of 270. Sodium was 136, potassium of 3.4, chloride of 103, bicarb 23, BUN 10, creatinine of 0.87, glucose of 63, lactate 1.4, calcium 9.4. Total bili 0.5, AST 14, ALT 12, alk phos 78. Albumin was 4.4. Urine was obtained, negative. Toxicology was positive for digoxin level of 3.6. He had a cocaine positive and he was cannabinoids positive and serum alcohol is 75. He did have an EKG obtained today as well; showed a normal sinus rhythm rate of 64. No ST elevations or T- wave inversions were noted. Old medical records were reviewed. ASSESSMENT AND PLAN: Mr. Skinner is a 51-year-old male patient coming in to the ER today with complaints of an overdose. He will be admitted under observation status for: 1. Overdose: Again to me it is unclear if this intentional or accidental. When asking him, he feels depressed. He is really not forthcoming. At this point, he says that he does not think that he was suicidal. To be sure, I would like to get a psychiatric evaluation, put him on a 1:1 observation to be safe. I think at this point though he does not need Digibind, I am going to repeat his digoxin level and his electrolytes. We will go ahead and check these in the morning and now we will get serial EKGs. We will place him on telemetry. We will continue to follow. He is not having any signs of toxicity , which is fortunate. In terms of the hypoglycemia, he may have taken some glyburide apparently. We will check finger-sticks every 4 hours. We will feed him, keep him on D5 half normal, and we will continue to monitor. 2. Hypertension: In the setting of this overdose, I am going to hold the atenolol as digoxin can cause bradyarrhythmias and the beta-chiquis. 3. Hyperlipidemia: I will continue statin. 4. Coronary artery disease: We will continue the aspirin and statin. We will restart that beta-chiquis when we were able. 5. DVT prophylaxis: He will be placed on heparin subcu. 6. Code status: Full code. 7. Fluids, electrolytes, and nutrition: He can have a regular diet. TIME SPENT: On the admission was approximately 60 minutes; greater than half the time spent [id number] with the patient obtaining my history and physical, other half of the time spent going over the plan of care with the patient and implementing the plan of care. I did discuss the plan of care with my attending, Dr. Vuong; she is in agreement. MITRA POWELL NP [id number]/CPS #: [id number] MTDTianna
[2017-05-11] MEDS: KCL 10 MEQ/50 ML IVPREMIX* 10 MEQ/50 ML BAG IV SCH ×2 (15:00→15:26)
[2017-05-11] MEDS: Heparin VIAL(*) 5000 UNITS/ML VIAL (FIVE THOUSAND) SUBCUT SCH ×2 (15:00→21:10)
[2017-05-11] MEDS ORDERED: KCL premix 10MEQ/50 ML x 2 BAGS IV SCH (16:00)
[2017-05-11] MEDS ORDERED: Potassium Chlor TAB* 20 MEQ TAB.ER PO ONE (17:57)
[2017-05-11] MEDS ORDERED: Atorvastatin* 20 MG TAB PO SCH (18:00)
[2017-05-12] MEDS: Heparin VIAL(*) 5000 UNITS/ML VIAL (FIVE THOUSAND) SUBCUT SCH (05:15)
[2017-05-12 06:17] LABS: Hematocrit 46 % (42-52); Hemoglobin 15.3 g/dl (14.0-18.0); Mean Corpuscular HGB Conc 33 g/dl (31-36); Mean Corpuscular Hemoglobin 32 pg (27-31); Mean Corpuscular Volume 95 fL (80-94); Mean Platelet Volume 7 um3 (7.4-10.4); Red Blood Count 4.85 10^6/ul (4.0-5.4); Red Cell Distribution Width 14 % (10.5-15); White Blood Count 9.9 10^3/ul (3.5-10.8)
[2017-05-12 06:31] LABS: BUN/Creatinine Ratio 14.9 (8-20); Calcium 8.9 mg/dL (8.6-10.3); EGFR Non-African American 92.5 (>60)
[2017-05-12 06:42] LABS: Digoxin 0.6 ng/ml (0.8-2.0)
[2017-05-12] MEDS ORDERED: Aspirin EC Low Dose* 81 MG TAB.EC PO SCH (09:00)
[2017-05-12 11:31] VITALS: BP 147/67
--- NOTE | 2017-05-12 12:39 | PN ---
Subjective Date of Service: 05/12/17 Interval History: HOSPITALIST PROGRESS NOTE Patient seen and examined at bedside. He fee Objective Active Medications: Aspirin (Aspirin Ec Low Dose*) 81 mg PO DAILY [facility] Last Admin: 05/12/17 08:09 Dose: 81 mg Atorvastatin Calcium (Lipitor*) 20 mg PO QPM [facility] Last Admin: 05/11/17 20:00 Dose: 20 mg Heparin Sodium (Porcine) (Heparin Vial(*)) 5,000 units SUBCUT Q8HR [facility] Last Admin: 05/12/17 05:15 Dose: Not Given Potassium Chloride (Klor Con Er Tab*) 20 meq PO ONCE ONE Last Admin: 05/11/17 20:00 Dose: 20 meq Vital Signs 05/11/17 05/11/17 05/11/17 13:28 14:16 15:19 Temperature 98.2 F 98.2 F 98.0 F Pulse Rate 84 84 71 Respiratory 14 14 18 Rate Blood Pressure 167/82 167/82 136/63 (mmHg) O2 Sat by Pulse 97 97 98 Oximetry 05/11/17 05/11/17 05/11/17 19:24 20:00 23:38 Temperature 97.8 F 97.9 F Pulse Rate 64 63 Respiratory 24 18 16 Rate Blood Pressure 153/80 126/60 (mmHg) O2 Sat by Pulse 98 98 Oximetry 05/12/17 05/12/17 05/12/17 00:00 03:59 08:00 Temperature 97.8 F Pulse Rate 51 Respiratory 16 16 Rate Blood Pressure 116/70 (mmHg) O2 Sat by Pulse 98 97 98 Oximetry 05/12/17 05/12/17 05/12/17 08:11 09:32 11:25 Temperature 97.8 F 98.3 F Pulse Rate 60 61 Respiratory 16 16 Rate Blood Pressure 134/74 147/67 (mmHg) O2 Sat by Pulse 98 99 97 Oximetry Result Diagrams: 05/12/17 06:01 05/12/17 06:01 Additional Lab and Data: Lab Results 05/11/17 05/11/17 05/11/17 Range/Units 07:24 07:24 07:36 WBC (3.5-10.8) 10^3/ul RBC (4.0-5.4) 10^6/ul Hgb (14.0-18.0) g/dl Hct (42-52) % MCV (80-94) fL MCH (27-31) pg MCHC (31-36) g/dl RDW (10.5-15) % Plt Count (150-450) 10^3/ul MPV (7.4-10.4) um3 Neut % (Auto) (38-83) % Lymph % (Auto) (25-47) % Schleicher % (Auto) (1-9) % Eos % (Auto) (0-6) % Baso % (Auto) (0-2) % Absolute Neuts (auto) (1.5-7.7) 10^3/ul Absolute Lymphs (auto) (1.0-4.8) 10^3/ul Absolute Monos (auto) (0-0.8) 10^3/ul Absolute Eos (auto) (0-0.6) 10^3/ul Absolute Basos (auto) (0-0.2) 10^3/ul Absolute Nucleated RBC 10^3/ul Nucleated RBC % Sodium 136 (133-145) mmol/L Potassium 3.4 L (3.5-5.0) mmol/L Chloride 103 (101-111) mmol/L Carbon Dioxide 23 (22-32) mmol/L Anion Gap 10 (2-11) mmol/L BUN 10 (6-24) mg/dL Creatinine 0.87 (0.67-1.17) mg/dL Est GFR ( Amer) 119.0 (>60) Est GFR (Non-Af Amer) 92.5 (>60) BUN/Creatinine Ratio 11.5 (8-20) Glucose 63 L (70-100) mg/dL POC Glucose (mg/dL) (74-106) mg/dL Lactic Acid (0.5-2.0) mmol/L Calcium 9.4 (8.6-10.3) mg/dL Total Bilirubin 0.50 (0.2-1.0) mg/dL AST 14 (13-39) U/L ALT 12 (7-52) U/L Alkaline Phosphatase 78 (34-104) U/L Total Protein 7.4 (6.4-8.9) g/dL Albumin 4.4 (3.2-5.2) g/dL Globulin 3.0 (2-4) g/dL Albumin/Globulin Ratio 1.5 (1-3) TSH 1.16 (0.34-5.60) mcIU/mL Urine Color Straw Urine Appearance Clear Urine pH 6.0 (5-9) Ur Specific [place] 1.002 L (1.010-1.030) Urine Protein Negative (Negative) Urine Ketones Negative (Negative) Urine Blood Negative (Negative) Urine Nitrate Negative (Negative) Urine Bilirubin Negative (Negative) Urine Urobilinogen Negative (Negative) Ur Leukocyte Esterase Negative (Negative) Urine Glucose Negative (Negative) Digoxin 3.6 H* (0.8-2.0) ng/ml Salicylates < 2.50 (<30) mg/dL Urine Opiates Screen None detected (None Detect) Acetaminophen < 15 mcg/mL Ur Barbiturates Screen None detected (None Detect) Ur Phencyclidine Scrn None detected (None Detect) Ur Amphetamines Screen None detected (None Detect) U Benzodiazepines Scrn None detected (None Detect) Urine Cocaine Screen Presumptive positive H (None Detect) U Cannabinoids Screen Presumptive positive H (None Detect) Serum Alcohol 75 H (<10) mg/dL 05/11/17 05/11/17 05/11/17 Range/Units 07:36 07:36 08:00 WBC 10.0 (3.5-10.8) 10^3/ul RBC 5.05 (4.0-5.4) 10^6/ul Hgb 15.9 (14.0-18.0) g/dl Hct 48 (42-52) % MCV 95 H (80-94) fL MCH 32 H (27-31) pg MCHC 33 (31-36) g/dl RDW 14 (10.5-15) % Plt Count 270 (150-450) 10^3/ul MPV 7 L (7.4-10.4) um3 Neut % (Auto) 71.8 (38-83) % Lymph % (Auto) 19.8 L (25-47) % Schleicher % (Auto) 6.3 (1-9) % Eos % (Auto) 1.0 (0-6) % Baso % (Auto) 1.1 (0-2) % Absolute Neuts (auto) 7.1 (1.5-7.7) 10^3/ul Absolute Lymphs (auto) 2.0 (1.0-4.8) 10^3/ul Absolute Monos (auto) 0.6 (0-0.8) 10^3/ul Absolute Eos (auto) 0.1 (0-0.6) 10^3/ul Absolute Basos (auto) 0.1 (0-0.2) 10^3/ul Absolute Nucleated RBC 0.01 10^3/ul Nucleated RBC % 0.1 Sodium (133-145) mmol/L Potassium (3.5-5.0) mmol/L Chloride (101-111) mmol/L Carbon Dioxide (22-32) mmol/L Anion Gap (2-11) mmol/L BUN (6-24) mg/dL Creatinine (0.67-1.17) mg/dL Est GFR ( Amer) (>60) Est GFR (Non-Af Amer) (>60) BUN/Creatinine Ratio (8-20) Glucose (70-100) mg/dL POC Glucose (mg/dL) 61 L (74-106) mg/dL Lactic Acid 1.4 (0.5-2.0) mmol/L Calcium (8.6-10.3) mg/dL Total Bilirubin (0.2-1.0) mg/dL AST (13-39) U/L ALT (7-52) U/L Alkaline Phosphatase (34-104) U/L Total Protein (6.4-8.9) g/dL Albumin (3.2-5.2) g/dL Globulin (2-4) g/dL Albumin/Globulin Ratio (1-3) TSH (0.34-5.60) mcIU/mL Urine Color Urine Appearance Urine pH (5-9) Ur Specific [place] (1.010-1.030) Urine Protein (Negative) Urine Ketones (Negative) Urine Blood (Negative) Urine Nitrate (Negative) Urine Bilirubin (Negative) Urine Urobilinogen (Negative) Ur Leukocyte Esterase (Negative) Urine Glucose (Negative) Digoxin (0.8-2.0) ng/ml Salicylates (<30) mg/dL Urine Opiates Screen (None Detect) Acetaminophen mcg/mL Ur Barbiturates Screen (None Detect) Ur Phencyclidine Scrn (None Detect) Ur Amphetamines Screen (None Detect) U Benzodiazepines Scrn (None Detect) Urine Cocaine Screen (None Detect) U Cannabinoids Screen (None Detect) Serum Alcohol (<10) mg/dL Assess/Plan/Problems-Billing Assessment:
--- NOTE | 2017-05-12 16:55 | CONS ---
CONSULTATION REPORT: DATE OF CONSULT: 05/12/17 ATTENDING CLINICIAN: Ethan Rider NP CONSULTING PHYSICIAN: Dr. Brendon Crespo with Psychiatry. REASON FOR CONSULT: Intentional overdose on medications. PSYCHIATRIC HISTORY: The patient is a 51-year-old white male with history of hypertension, hyperlipidemia, and polysubstance abuse who arrived at the emergency department following a telephone call from his spouse indicating that he had taken an intentional ingestion of several medications. The patient admits that he had been using cocaine and alcohol earlier in the night and stumbled into the bathroom of his house where he took some of his father's old medications. He was not sure what he was taking, but thought it was ibuprofen for what he calls a headache. The patient's became aware of this and was concerned enough to call the ambulance to have him brought to the hospital. It is believed that he consumed an unknown quantity of digoxin, ibuprofen and glyburide, all of which had been prescribed to his elderly father who used to reside with him in that house. The patient initially denied this, but there was evidence that he had taken these medications given that fact that his glucose was hypoglycemic at 60 and his digoxin level was toxic at 3.6. The patient was admitted initially to the ICU and then transferred to the telemetry unit on . At this time, he continues to deny that this was a suicide attempt. Initially he tries to tell me that the ingestion was a mistake and that he was merely reaching for ibuprofen; however, his is in the room looking at him incredulously, later he admits that he has relapsed on cocaine and alcohol and that he was looking for something to help him stay high at that time. It is notable that this patient is already known to me for a consult rendered on 02/15/17 under similar circumstances. At that time, he had intentionally overdosed on Benadryl while intoxicated on between 8 and 9 beers. At that time, he similarly minimized suicidal ideations and stated that he was only using alcohol infrequently and was discharged. It is notable that since then, he had 2 visits to our emergency room intoxicated on alcohol occurring on 02/19/17 and 02/20/17. When asked how he is going to prevent similar episodes, he is indicating that he would like to get clean and sober. He is declining the offer of inpatient substance abuse rehab; however, he states that he still maintains several relationships with people who used to be in his Alcoholics Anonymous community and indicating that he will contact them and start working a program again. He states that he would accept a referral to outpatient substance abuse services through [facility] where he resides. The patient's Patrizia is interviewed separately and she indicates that she believes that this was substance abuse related and that he is not a current danger to himself. The patient denies depressed mood, homicidality or any history of psychotic or manic symptoms. PAST PSYCHIATRIC HISTORY: The patient denies ever having any past formal suicide attempts. He has never been psychiatrically hospitalized. He states that on at least 2 occasions he has sought therapy at the [facility] but states that this was unhelpful and he is not interested in referral to that facility at this time. He has no history of using psychiatric mediations or any history of traumatic brain injury. SUBSTANCE ABUSE HISTORY: Significant for recent cocaine abuse, which was in his urine along with cannabis and a serum alcohol level of 75. The patient states that these behaviors had been increasing and that he is willing to consider getting back into . He does acknowledge that he received outpatient substance abuse services in the past but has never been to an inpatient rehab in his life. He does smoke approximately one-half pack cigarettes per day. PAST MEDICAL HISTORY: Significant for coronary artery disease, hypertension, hyperlipidemia, and history of myocardial infarction. The patient indicates that he has had 3 stents placed in his heart. CURRENT MEDICATIONS: 1. He takes ibuprofen 200 mg every 8 hours as needed. 2. Lipitor 20 mg at bedtime. 3. Atenolol 25 mg daily. 4. Aspirin 81 mg daily. ALLERGIES: No known drug allergies. FAMILY HISTORY: He denies any history of suicide in his family. SOCIAL HISTORY: The patient was born and raised in [place], [place], to an intact family. He is the youngest of 3 children and has an older brother and an older sister. 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 He was just to his current on 04/09/17 and they share a dog together. The patient has no children. He has been twice and twice prior to this. He has no history of service. The patient does have a legal history of 3 DWIs. He has served at least 1 year in a [facility] lockup and 2 [facility] in the [facility] for these charges. MENTAL STATUS EXAM: The patient is a middle-aged white male, somewhat disheveled in a patient gown. He is missing one of his front teeth. He appears somewhat salomón and older than his stated age. He is calm, cooperative , fairly easy to establish a rapport with and he answers questions readily. Speech has a normal rate, tone and volume. Mood is slightly anxious with a full affect. Thought process is linear and goal directed. Thought content is significant for his desire to leave the hospital. He is denying suicidal or homicidal ideations. He denies auditory or visual hallucinations. Insight and judgement appear to be somewhat limited given his refusal to consider inpatient rehab. Cognitively he is awake and alert with what would appear to be an average intellect. DIAGNOSES: Elco I: Alcohol use disorder, cocaine use disorder and cannabis use disorder. Elco II: Deferred. ASSESSMENT: The patient is a 51-year-old white male with a history of alcoholism, cocaine and cannabis addiction who has become progressively more abusive of these substances over the past several months who is currently admitted for what appears to be a mistake in ingestion of digoxin, ibuprofen, and glyburide. Both the patient and his are denying that he is any danger to himself or others. His has removed all the pills from the house. He does not own firearms. Presently they are both hoping that he can be discharged and he is willing to consider AA treatment and he is also willing to receive contact information from the substance abuse services of [facility] where he resides. I do think he can be safely discharged back to the community and I feel that his primary issues involve substance abuse. RECOMMENDATIONS: Psychiatry does not feel that this patient would benefit from inpatient mental health treatment and we feel that he is safe to be discharged home. I would have the social work service give him a referral to whatever substance abuse treatment can be found in [facility]. The patient is strongly encouraged to abstain from drugs of abuse such as alcohol, cannabis and cocaine. If a similar episode happens again, we may be forced to admit him involuntarily to the psychiatric unit as a negative consequence for these behaviors. [id number]/[facility] #: [id number] [facility] HOSPITALTianna
--- NOTE | 2017-05-12 18:02 | DS ---
CC: Dr. Morrison * DISCHARGE SUMMARY: DATE OF ADMISSION: 05/11/17 DATE OF DISCHARGE: 05/12/17 PRIMARY CARE PROVIDER: Dr. Morrison. DISCHARGE DIAGNOSES: 1. Accidental overdose on digoxin and glyburide. 2. Alcohol, cocaine and marijuana abuse. SECONDARY DIAGNOSES: 1. Hypertension. 2. Hyperlipidemia. 3. Coronary artery disease status post myocardial infarction. MEDICATION LIST: 1. Aspirin 81 mg p.o. daily. 2. Atenolol 25 mg p.o. daily. 3. Atorvastatin 20 mg p.o. q.p.m. 4. Ibuprofen 200 mg p.o. q.8 hours p.r.n. pain. HOSPITAL COURSE: Mr. Skinner is a 51-year-old male with a past medical history as stated above that presented to the emergency room on May 11 as a 9.41, brought in by police after his found out that he had taking digoxin and glyburide that actually belong to the patient's father. For more details about his presentation, I refer you to his history and physical. The patient was admitted in January and at that time, he had had alcohol and took 2 bottles of Benadryl. He was seen by Psychiatry and he was felt not to be suicidal and was discharged home. On this admission, he was found to have an elevated digoxin level at 3.6 but he had no significant EKG changes, only some bradycardia, but he is on atenolol as outpatient. The patient was also found to have U-tox that was presumptively positive for cocaine and cannabinoids and his serum alcohol level was 75. He was observed on telemetry with no significant arrhythmias and his digoxin level is already 0.6. He did not have significant hypoglycemia. His initial glucose on admission was 61, but then it trended back up and the patient was able to tolerate an oral diet. The patient states that he took the medications by mistake. He was looking for ibuprofen and ended up taking his father's pills, but he denies any suicidal intent. He was seen in consultation by Psychiatry (Dr. Crespo) and his impression is that the patient's major issues are his polysubstance abuse. In January, the patient had some alcohol but at that point he felt that he had not relapsed, but now it is apparent that he did. He was seen in the emergency room in February with positive alcohol level on both times and also cocaine in his urine. Dr. Crespo feels that the patient's issue at this point is his use of alcohol, cocaine, marijuana and that he is taking other medications probably to continue his "high." He does not feel the patient has any suicidal ideation and does not think he needs to be admitted to the mental health unit at this point. The patient will be seen by social work supervisor and he will receive information about outpatient alcohol and drug rehab facilities as he is not interested in inpatient rehab at this time. The patient is medically stable for discharge. PHYSICAL EXAMINATION: Vital Signs: Temperature 98.3, heart rate is 61, respiratory rate 16, oxygen saturation 97% on room air, blood pressure is 147/ 67. General: The patient is a middle age male, sitting up in bed in no acute distress. CVS: Normal S1, S2. Regular rate and rhythm. Chest: Breath sounds present bilaterally with no added sounds. Extremities: No edema. Neuro: He is alert, oriented x3. Able to move all 4 extremities. DIET: Heart healthy diet. ACTIVITY: As tolerated. DISPOSITION: To home. STATUS WHILE IN THE HOSPITAL: Observation. Please keep in mind that this is a summarized version of this patient's hospital stay. If you need more information, please feel free to call me at [phone] or please obtain the full medical records. TIME SEEN: Approximately 45 minutes was spent to complete this discharge. [id number]/[facility] #: [id number] [facility]
== END 2017-05-12 14:18 | disposition home or self-care (01) ==
LOC: ED 06:52 → EDHOLD 09:14 → INTOOBSV 09:14 → MEDTELE 13:26
PROVIDERS: ADMIT Internal Medicine; ATTEND Internal Medicine
DX: T46.0X1A Poisoning by cardiac-stimulant glycosides and drugs of similar action, accidental (unintentional), initial encounter (principal); T38.3X1A Poisoning by insulin and oral hypoglycemic [antidiabetic] drugs, accidental (unintentional), initial encounter; Y92.9 Unspecified place or not applicable; I10 Essential (primary) hypertension; E78.5 Hyperlipidemia, unspecified; I25.10 Atherosclerotic heart disease of native coronary artery without angina pectoris; I25.2 Old myocardial infarction; Z79.82 Long term (current) use of aspirin; Z79.899 Other long term (current) drug therapy; F17.210 Nicotine dependence, cigarettes, uncomplicated; F14.10 Cocaine abuse, uncomplicated; F10.20 Alcohol dependence, uncomplicated
CPT/HCPCS: 36415; 80048; 80053; 80162; 80307; 80320; 80329; 81003; 83605; 84443; 85025; 85610; 85730; 93005; 94760; 96372; 99291; A9270-GY; G0378; G0480; J1644; J3480

== ENCOUNTER 2019-05-11 18:55 | Emergency (ER) | payer SELFPAY ==
[2019-05-11] MEDS ORDERED: Ketorolac INJ* 60 MG/2 ML VIAL IM ONE (19:11)
[2019-05-11] MEDS ORDERED: Cyclobenzaprine TAB* 10 MG PO ONE ×3 (19:11→23:18)
--- NOTE | 2019-05-11 19:12 | UC ---
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 from alcohol he has had a stressful week as he fathers memorial service is tomorrow and he did not have time to eat today because he was to busy taking care of the dogs- - History of Current Complaint Chief Complaint: EDBackInjuryPain Stated Complaint: BACK PAIN PER EMS Time Seen by Provider: 05/11/19 19:10 Hx Obtained From: Patient Onset/Duration: Sudden Onset, Lasting Days - 3, Still Present Timing: Constant Pain Intensity: 8 Pain Scale Used: 0-10 Numeric Back Pain: Is Discrete @ Character: Spasmodic Aggravating Factor(s): Movement Alleviating Factor(s): Nothing Associated Signs And Symptoms: Positive: Negative - Allergies/Home Medications Allergies/Adverse Reactions: Allergies Allergy/AdvReac Type Severity Reaction Status Date / Time No Known Allergies Allergy Verified 05/11/19 19:02 Home Medications: Home Medications Topiramate [Topamax] 1 tab PO BID 05/11/19 [History Confirmed 05/11/19] PMH/Surg Hx/FS Hx/Imm Hx Previously Healthy: No Endocrine History: Dyslipidemia Cardiovascular History: Hypertension Psychological History: Other Other Psychological History: mood disorder, 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 - Surgical History Surgical History: Unable to Obtain/Confirm - Family History Known Family History: Negative: Cardiac Disease - Social History Occupation: Employed Full-time Lives: Alone Alcohol Use: None Substance Use Type: None Smoking Status (MU): Current Every Day Smoker Type: Cigarettes Amount Used/How Often: 1/2 pack for years Household Exposure Type: Cigarettes - Immunization History Most Recent Influenza Vaccination: NOT THIS YEAR Most Recent Tetanus Shot: 2011 Most Recent Pneumonia Vaccination: NEVER Review of Systems All Other Systems Reviewed And Are Negative: Yes Constitutional: Positive: Negative Skin: Positive: Negative Eyes: Positive: Negative ENT: Positive: Negative Respiratory: Positive: Negative Cardiovascular: Positive: Negative Gastrointestinal: Positive: Negative Genitourinary: Positive: Negative Motor: Positive: Negative Neurovascular: Positive: Negative Musculoskeletal: Positive: Arthralgia, Myalgia Neurological: Positive: Negative Psychological: Positive: Negative Is Patient Immunocompromised?: No Physical Exam Triage Information Reviewed: Yes Appearance: Well-Appearing, Pain Distress - cring out in pain but is also asking for food, Obese Vital Signs: Initial Vital Signs Temp 97.3 F 05/11/19 18:57 Pulse 76 05/11/19 18:57 Resp 24 05/11/19 18:57 BP 129/89 05/11/19 18:57 Pulse Ox 100 05/11/19 18:57 Vital Signs Reviewed: Yes Eye Exam: Normal Eyes: Positive: Conjunctiva Clear ENT Exam: Normal ENT: Positive: Normal ENT inspection, Hearing grossly normal. Negative: Trismus , Muffled voice, Hoarse voice Dental Exam: Normal Neck exam: Normal Neck: Positive: Supple, Nontender Respiratory Exam: Normal Respiratory: Positive: Chest non-tender, No respiratory distress, No accessory muscle use Cardiovascular Exam: Normal Cardiovascular: Positive: RRR, Pulses Normal, Brisk Capillary Refill Abdominal Exam: Normal Abdomen Description: Positive: Nontender, No Organomegaly, Soft. Negative: CVA Tenderness (R), CVA Tenderness (L) Bowel Sounds: Positive: Present Musculoskeletal Exam: Normal Musculoskeletal: Positive: No Edema, Other: - c/o pain lbp with any movement of legs Neurological Exam: Normal Neurological: Positive: Alert, Muscle Tone Normal Psychological Exam: Normal Skin Exam: Normal Re-Evaluation - Re-Evaluation First Eval Change: Improved - was asleep in room---we will be getting patient oob and attempt to walk Back Pain Course/Dx - Course Course Of Treatment: muscle relaxer, nsaids, back exercise, follow with pcp this week - Differential Dx/Diagnosis Provider Diagnosis: Lumbar paraspinal muscle spasm Discharge - Sign-Out/Discharge Documenting (check all that apply): Patient Departure Patient Received Moderate/Deep Sedation with Procedure: No - Discharge Plan Condition: Stable Disposition: HOME Prescriptions: Cyclobenzaprine TAB* [Flexeril 10 MG TAB*] 10 mg PO TID PRN #15 tab PRN Reason: muscle spasm Ibuprofen TAB* [Motrin TAB* 600 MG] 600 mg PO Q6H PRN #30 tab PRN Reason: Pain Patient Education Materials: Muscle Spasm (ED), Acute Low Back Pain (ED), Lower Back Exercises (ED) Referrals: Ryan Romano, [employer] [Primary Care Provider] - 1 Week - Billing Disposition and Condition Condition: STABLE Disposition: Home
[2019-05-11] MEDS ORDERED: Ibuprofen TAB* 600 MG PO ONE ×2 (21:47→23:18)
[2019-05-11 23:38] VITALS: BP 114/68
== END 2019-05-11 23:38 | disposition home or self-care (01) ==
LOC: ED 18:55
DX: M62.830 Muscle spasm of back (principal); F17.210 Nicotine dependence, cigarettes, uncomplicated
CPT/HCPCS: 96372; 99282; A9270-GY; J1885